=== PATIENT | male | born 1995 | race Caucasian/White ===

== ENCOUNTER 2019-09-12 15:07 | Outpatient (CLI) | payer OTHER, SELFPAY ==
--- NOTE | ~2019-09-12 | US_ITS ---
EXAMINATION: US scrotum doppler DATE: 09/12/2019 16:29 INDICATION: Other specified disorders of the male genital organs. TECHNIQUE: Grayscale and Doppler ultrasound images of the testes were obtained. COMPARISON: None. FINDINGS: The right testis measures 4.5 x 2.9 x 3.0 cm. The left testis measures 4.1 x 2.6 x 2.9 cm. There is normal vascular flow to both testes. The right epididymis is normal with normal vascular noemi w. The left epididymis is normal with normal vascular flow. There is no varicocele or hydrocele. IMPRESSION: 1. Normal testes. Reviewed, dictated and finalized at location A. IMPRESSION: 1. Normal testes.
== END 2019-09-12 15:08 | disposition home or self-care (01) ==
LOC: CHSIMG 15:09
PROVIDERS: PCP Family Medicine; Visit Provider Family Medicine
DX: N50.89 Other specified disorders of the male genital organs (principal)
CPT/HCPCS: 76870; 93976

== ENCOUNTER 2020-02-12 12:33 | Outpatient (CLI) | payer OTHER, SELFPAY ==
--- NOTE | ~2020-02-12 | XR_ITS ---
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 COMPARISON: 10/11/2016 FINDINGS: The lungs are free of acute opacities. There is no pleural effusion or pneumothorax. The ca rdiomediastinal silhouette is normal. The visualized bones and soft tissues are unremarkable. IMPRESSION: 1. No acute cardiopulmonary abnormality. Reviewed, dictated and finalized at location A. R PAINT
== END 2020-02-12 12:34 | disposition home or self-care (01) ==
PROVIDERS: PCP Family Medicine
DX: R76.12 Nonspecific reaction to cell mediated immunity measurement of gamma interferon antigen response without active tuberculosis (principal)
CPT/HCPCS: 71046

== ENCOUNTER 2020-03-29 13:44 | Outpatient (CLI) | payer OTHER, SELFPAY ==
[2020-03-30 19:17] LABS: SARS-CoV-2 RNA PCR Negative
== END 2020-03-29 13:45 | disposition home or self-care (01) ==
PROVIDERS: PCP Family Medicine; Visit Provider Family Medicine
DX: Z20.822 Contact with and (suspected) exposure to COVID-19 (principal)
CPT/HCPCS: C9803; U0003; U0005

== ENCOUNTER 2020-03-30 14:03 | Outpatient (CLI) | payer OTHER, SELFPAY ==
--- NOTE | ~2020-03-30 | XR_ITS ---
EXAMINATION: XR chest 2V DATE: 03/30/2020 14:21 INDICATION: Nonspecific reaction to tuberculin skin test TECHNIQUE: frontal and lateral views of the chest were obtained. COMPARISON: Chest radiograph dated 02/12/2020 FINDINGS: The lungs remain clear with no focal airspace opacities, pulmonary edema, pleural effusion or pneumot horax. The cardiomediastinal silhouette is normal. Visualized bones and soft tissues are unremarkable . IMPRESSION: 1. No acute cardiopulmonary disease. Reviewed, dictated and finalized at location B. TYPESETTER OPERATOR
[2020-03-30 15:22] LABS: HIV 1 P24 AG Negative (Negative); HIV 1/2 AB Negative (Negative)
[2020-04-03 22:58] LABS: Hepatitis A Antibody IgM Nonreactive; Hepatitis B Core Antibody Nonreactive (Nonreactive); Hepatitis B Surface Antigen Nonreactive (Nonreactive); Hepatitis C Signal to Cutoff 0.01 ratio (<1.00); Hepatitis C Virus Antibody Nonreactive (Nonreactive)
[2020-04-05 07:25] LABS: NIL 0.04 IU/mL; TB1-NIL 0.01 IU/mL
[2020-04-05 07:26] LABS: TB2-NIL 0.04 IU/mL
[2020-04-05 07:27] LABS: Quantiferon TB Plus, 1T NEGATIVE
== END 2020-03-30 14:04 | disposition home or self-care (01) ==
PROVIDERS: PCP Family Medicine; Visit Provider Family Medicine
DX: R76.11 Nonspecific reaction to tuberculin skin test without active tuberculosis (principal); R19.7 Diarrhea, unspecified
CPT/HCPCS: 36415; 71046; 80074; 86480; 86703

== ENCOUNTER 2020-04-24 11:52 | Outpatient (NON) | payer OTHER, SELFPAY | END 2020-04-24 11:53 | disposition home or self-care (01) | PROVIDERS: Visit Provider Nurse Practitioner Family | DX: R10.31 Right lower quadrant pain (principal); R10.32 Left lower quadrant pain; R19.7 Diarrhea, unspecified | CPT/HCPCS: 87491; 87591 ==

== ENCOUNTER 2020-04-25 11:42 | Outpatient (CLI) | payer OTHER, SELFPAY | END 2020-04-25 11:43 | disposition home or self-care (01) | LOC: CHSLAB 11:45 | PROVIDERS: PCP Family Medicine; Visit Provider Nurse Practitioner Family | DX: R19.7 Diarrhea, unspecified (principal) | CPT/HCPCS: 87177; 87209; 87269; 87324 ==

== ENCOUNTER 2020-05-14 16:01 | Outpatient (CLI) | payer OTHER, SELFPAY ==
[2020-05-14 16:12] LABS: Basophils Absolute Auto 0.03 K/mm3 (0.00-0.10); Basophils Percent Auto 0.5 % (0.0-1.0); Eosinophils Absolute Auto 0.15 K/mm3 (0.02-0.50); Eosinophils Percent Auto 2.4 % (1.0-6.0); Hematocrit 41.7 % (40.0-54.0); Hemoglobin 14.5 g/dL (14.0-18.0); Immature Granulocyte Absolute 0.01 K/mm3 (0.00-0.00); Immature Granulocyte Percent A 0.2 % (0.0-0.0); Lymphocytes Absolute Auto 2.81 K/mm3 (1.10-4.50); Lymphocytes Percent Auto 44.9 % (18.0-42.0); Mean Corpuscular HGB Conc 34.8 g/dL (32.0-36.0); Mean Corpuscular Hemoglobin 31.3 pg (27.0-31.0); Mean Corpuscular Volume 90.1 fL (78.0-102.0); Mean Platelet Volume 8.8 fl (8.7-11.0); Monocytes Absolute Auto 0.46 K/mm3 (0.10-0.90); Monocytes Percent Auto 7.3 % (2.0-11.0); Neutrophils Absolute Auto 2.8 K/mm3 (1.7-7.2); Neutrophils Percent Auto 44.7 % (50.0-70.0); Platelet Count Result 257 K/mm3 (150-420); Red Blood Count 4.63 M/mm3 (4.70-6.10); Red Cell Distribution Width 12.3 % (11.6-14.4); White Blood Count 6.3 K/mm3 (4.8-10.8)
[2020-05-14 17:06] LABS: Alanine Aminotransferase 22 U/L (16-63); Albumin Level 4.3 g/dL (3.4-5.0); Alkaline Phosphatase 52 U/L (46-116); Anion Gap 10 mmol/L (8-16); Aspartate Amino Transferase 11 U/L (15-37); Bilirubin,Total 0.4 mg/dL (0.00-1.00); Blood Urea Nitrogen 19 mg/dL (7-18); Calcium 9.7 mg/dL (8.5-10.1); Carbon Dioxide 26 mmol/L (21-32); Chloride 103 mmol/L (98-108); Estimated Glomerular Filt Rate > 60; Glucose 95 mg/dL (70-99); Osmolality Calculated 290 mOsm/kg (285-295); Potassium 4.2 mmol/L (3.5-5.1); Sodium 139 mmol/L (136-145); Total Protein 7.3 g/dL (6.4-8.2)
[2020-05-17 04:04] LABS: Hepatitis A Antibody IgM Nonreactive; Hepatitis B Core Antibody Nonreactive (Nonreactive); Hepatitis B Surface Antigen Nonreactive (Nonreactive); Hepatitis C Signal to Cutoff 0.01 ratio (<1.00); Hepatitis C Virus Antibody Nonreactive (Nonreactive)
== END 2020-05-14 16:02 | disposition home or self-care (01) ==
PROVIDERS: PCP Family Medicine
DX: Z79.899 Other long term (current) drug therapy (principal); Z51.81 Encounter for therapeutic drug level monitoring
CPT/HCPCS: 36415; 80053; 80074; 85025

== ENCOUNTER 2020-07-19 11:26 | Outpatient (CLI) | payer OTHER, SELFPAY ==
[2020-07-19 11:37] LABS: Basophils Absolute Auto 0.05 K/mm3 (0.00-0.10); Basophils Percent Auto 0.8 % (0.0-1.0); Eosinophils Absolute Auto 0.19 K/mm3 (0.02-0.50); Eosinophils Percent Auto 2.9 % (1.0-6.0); Hematocrit 40.9 % (40.0-54.0); Hemoglobin 14.1 g/dL (14.0-18.0); Immature Granulocyte Absolute 0.01 K/mm3 (0.00-0.00); Immature Granulocyte Percent A 0.2 % (0.0-0.0); Lymphocytes Percent Auto 41.8 % (18.0-42.0); Mean Corpuscular HGB Conc 34.5 g/dL (32.0-36.0); Mean Corpuscular Hemoglobin 29.8 pg (27.0-31.0); Mean Corpuscular Volume 86.5 fL (78.0-102.0); Mean Platelet Volume 8.9 fl (8.7-11.0); Monocytes Absolute Auto 0.43 K/mm3 (0.10-0.90); Monocytes Percent Auto 6.7 % (2.0-11.0); Neutrophils Absolute Auto 3.1 K/mm3 (1.7-7.2); Neutrophils Percent Auto 47.6 % (50.0-70.0); Platelet Count Result 260 K/mm3 (150-420); Red Blood Count 4.73 M/mm3 (4.70-6.10); Red Cell Distribution Width 11.5 % (11.6-14.4); White Blood Count 6.5 K/mm3 (4.8-10.8)
[2020-07-19 12:25] LABS: Alanine Aminotransferase 19 U/L (16-63); Albumin Level 4.2 g/dL (3.4-5.0); Alkaline Phosphatase 52 U/L (46-116); Anion Gap 8 mmol/L (8-16); Aspartate Amino Transferase 12 U/L (15-37); Bilirubin,Total 0.7 mg/dL (0.00-1.00); Blood Urea Nitrogen 18 mg/dL (7-18); Calcium 9.2 mg/dL (8.5-10.1); Carbon Dioxide 28 mmol/L (21-32); Chloride 104 mmol/L (98-108); Cholesterol 213 mg/dL (0-200); Estimated Glomerular Filt Rate > 60; Glucose 91 mg/dL (70-99); HDL Direct 61 mg/dL (40-60); LDL Cholesterol Calculated 140 mg/dL (<130); Magnesium 2.1 mg/dL (1.8-2.4); Osmolality Calculated 291 mOsm/kg (285-295); Potassium 4.1 mmol/L (3.5-5.1); Sodium 140 mmol/L (136-145); Total Protein 7.1 g/dL (6.4-8.2); Triglycerides 58 mg/dL (0-150); Uric Acid 5.5 mg/dL (3.5-7.2)
== END 2020-07-19 11:27 | disposition home or self-care (01) ==
LOC: CHSLAB 11:29
PROVIDERS: PCP Family Medicine
DX: Z51.81 Encounter for therapeutic drug level monitoring (principal); Z79.899 Other long term (current) drug therapy
CPT/HCPCS: 36415; 80053; 80061; 83735; 84550; 85025

== ENCOUNTER 2020-08-16 17:26 | Outpatient (CLI) | payer OTHER, SELFPAY ==
[2020-08-16 17:42] LABS: Basophils Absolute Auto 0.04 K/mm3 (0.00-0.10); Basophils Percent Auto 0.6 % (0.0-1.0); Eosinophils Absolute Auto 0.12 K/mm3 (0.02-0.50); Eosinophils Percent Auto 1.9 % (1.0-6.0); Hematocrit 40.1 % (40.0-54.0); Hemoglobin 13.5 g/dL (14.0-18.0); Immature Granulocyte Absolute 0.01 K/mm3 (0.00-0.00); Immature Granulocyte Percent A 0.2 % (0.0-0.0); Lymphocytes Absolute Auto 2.64 K/mm3 (1.10-4.50); Lymphocytes Percent Auto 41.8 % (18.0-42.0); Mean Corpuscular HGB Conc 33.7 g/dL (32.0-36.0); Mean Corpuscular Hemoglobin 29.5 pg (27.0-31.0); Mean Corpuscular Volume 87.7 fL (78.0-102.0); Monocytes Absolute Auto 0.41 K/mm3 (0.10-0.90); Monocytes Percent Auto 6.5 % (2.0-11.0); Neutrophils Absolute Auto 3.1 K/mm3 (1.7-7.2); Platelet Count Result 265 K/mm3 (150-420); Red Blood Count 4.57 M/mm3 (4.70-6.10); Red Cell Distribution Width 11.8 % (11.6-14.4); White Blood Count 6.3 K/mm3 (4.8-10.8)
[2020-08-16 18:04] LABS: Alanine Aminotransferase 15 U/L (16-63); Albumin Level 4.1 g/dL (3.4-5.0); Alkaline Phosphatase 50 U/L (46-116); Anion Gap 9 mmol/L (8-16); Aspartate Amino Transferase 13 U/L (15-37); Bilirubin,Total 0.8 mg/dL (0.00-1.00); Blood Urea Nitrogen 16 mg/dL (7-18); Calcium 8.8 mg/dL (8.5-10.1); Carbon Dioxide 28 mmol/L (21-32); Chloride 104 mmol/L (98-108); Cholesterol 206 mg/dL (0-200); Estimated Glomerular Filt Rate > 60; Glucose 93 mg/dL (70-99); HDL Direct 56 mg/dL (40-60); LDL Cholesterol Calculated 126 mg/dL (<130); Osmolality Calculated 293 mOsm/kg (285-295); Potassium 4.2 mmol/L (3.5-5.1); Sodium 141 mmol/L (136-145); Total Protein 6.9 g/dL (6.4-8.2); Triglycerides 122 mg/dL (0-150); Uric Acid 5.4 mg/dL (3.5-7.2)
== END 2020-08-16 17:27 | disposition home or self-care (01) ==
LOC: CHSLAB 17:32
PROVIDERS: PCP Family Medicine
DX: Z51.81 Encounter for therapeutic drug level monitoring (principal); Z79.899 Other long term (current) drug therapy
CPT/HCPCS: 36415; 80053; 80061; 83735; 84550; 85025

== ENCOUNTER 2020-10-03 16:51 | Outpatient (CLI) | payer OTHER, SELFPAY ==
[2020-10-03 17:43] LABS: Basophils Absolute Auto 0.04 K/mm3 (0.00-0.10); Basophils Percent Auto 0.5 % (0.0-1.0); Eosinophils Absolute Auto 0.11 K/mm3 (0.02-0.50); Eosinophils Percent Auto 1.4 % (1.0-6.0); Hematocrit 41.8 % (40.0-54.0); Hemoglobin 14.3 g/dL (14.0-18.0); Immature Granulocyte Absolute 0.02 K/mm3 (0.00-0.00); Immature Granulocyte Percent A 0.3 % (0.0-0.0); Lymphocytes Absolute Auto 3.09 K/mm3 (1.10-4.50); Lymphocytes Percent Auto 38.7 % (18.0-42.0); Mean Corpuscular HGB Conc 34.2 g/dL (32.0-36.0); Mean Corpuscular Hemoglobin 30.6 pg (27.0-31.0); Mean Corpuscular Volume 89.5 fL (78.0-102.0); Mean Platelet Volume 8.9 fl (8.7-11.0); Monocytes Absolute Auto 0.52 K/mm3 (0.10-0.90); Monocytes Percent Auto 6.5 % (2.0-11.0); Neutrophils Absolute Auto 4.2 K/mm3 (1.7-7.2); Neutrophils Percent Auto 52.6 % (50.0-70.0); Platelet Count Result 253 K/mm3 (150-420); Red Blood Count 4.67 M/mm3 (4.70-6.10); Red Cell Distribution Width 13.2 % (11.6-14.4)
[2020-10-03 18:42] LABS: Anion Gap 11 mmol/L (8-16); Carbon Dioxide 27 mmol/L (21-32); Chloride 105 mmol/L (98-108); Potassium 4.1 mmol/L (3.5-5.1); Sodium 143 mmol/L (136-145)
[2020-10-03 19:04] LABS: Alanine Aminotransferase 22 U/L (16-63); Albumin Level 4.5 g/dL (3.4-5.0); Alkaline Phosphatase 51 U/L (46-116); Aspartate Amino Transferase 17 U/L (15-37); Bilirubin,Total 0.4 mg/dL (0.00-1.00); Blood Urea Nitrogen 19 mg/dL (7-18); Estimated Glomerular Filt Rate > 60; Glucose 85 mg/dL (70-99); Magnesium 2.1 mg/dL (1.8-2.4); Osmolality Calculated 297 mOsm/kg (285-295); Total Protein 7.6 g/dL (6.4-8.2)
== END 2020-10-03 16:52 | disposition home or self-care (01) ==
LOC: CHSLAB 16:55
PROVIDERS: PCP Family Medicine
DX: Z79.899 Other long term (current) drug therapy (principal)
CPT/HCPCS: 36415; 80053; 83735; 85025

== ENCOUNTER 2020-10-09 17:12 | Outpatient (CLI) | payer OTHER, SELFPAY ==
[2020-10-09 18:40] LABS: Occult Blood Negative (Negative)
[2020-10-16 00:43] LABS: Lactoferrin, Stool Negative (Negative)
[2020-10-19 21:32] LABS: Calprotectin, Stool 16 mcg/g
[2020-10-23 04:32] LABS: FECFAT Total Specimen Weight 41 g
== END 2020-10-09 17:13 | disposition home or self-care (01) ==
LOC: CHSLAB 17:15
PROVIDERS: PCP Family Medicine; Visit Provider Family Medicine
DX: R19.7 Diarrhea, unspecified (principal)
CPT/HCPCS: 82272; 82710; 83630; 83993; 87045; 87046; 87177; 87209; 87324; 87427

== ENCOUNTER 2020-11-29 15:17 | Outpatient (CLI) | payer OTHER, SELFPAY ==
[2020-11-29 15:31] LABS: Basophils Absolute Auto 0.03 K/mm3 (0.00-0.10); Basophils Percent Auto 0.4 % (0.0-1.0); Eosinophils Absolute Auto 0.13 K/mm3 (0.02-0.50); Eosinophils Percent Auto 1.7 % (1.0-6.0); Hematocrit 40.4 % (40.0-54.0); Hemoglobin 13.7 g/dL (14.0-18.0); Immature Granulocyte Absolute 0.02 K/mm3 (0.00-0.00); Immature Granulocyte Percent A 0.3 % (0.0-0.0); Lymphocytes Absolute Auto 3.18 K/mm3 (1.10-4.50); Lymphocytes Percent Auto 40.7 % (18.0-42.0); Mean Corpuscular HGB Conc 33.9 g/dL (32.0-36.0); Mean Corpuscular Hemoglobin 31.3 pg (27.0-31.0); Mean Corpuscular Volume 92.2 fL (78.0-102.0); Mean Platelet Volume 8.8 fl (8.7-11.0); Monocytes Absolute Auto 0.61 K/mm3 (0.10-0.90); Monocytes Percent Auto 7.8 % (2.0-11.0); Neutrophils Absolute Auto 3.9 K/mm3 (1.7-7.2); Neutrophils Percent Auto 49.1 % (50.0-70.0); Platelet Count Result 252 K/mm3 (150-420); Red Blood Count 4.38 M/mm3 (4.70-6.10); Red Cell Distribution Width 12.8 % (11.6-14.4); White Blood Count 7.8 K/mm3 (4.8-10.8)
[2020-11-29 16:42] LABS: Alanine Aminotransferase 20 U/L (16-63); Albumin Level 4.1 g/dL (3.4-5.0); Alkaline Phosphatase 48 U/L (46-116); Anion Gap 9 mmol/L (8-16); Aspartate Amino Transferase 13 U/L (15-37); Bilirubin,Total 0.4 mg/dL (0.00-1.00); Blood Urea Nitrogen 21 mg/dL (7-18); Calcium 8.7 mg/dL (8.5-10.1); Carbon Dioxide 28 mmol/L (21-32); Chloride 107 mmol/L (98-108); Cholesterol 213 mg/dL (0-200); Estimated Glomerular Filt Rate > 60; Glucose 88 mg/dL (70-99); HDL Direct 53 mg/dL (40-60); LDL Cholesterol Calculated 132 mg/dL (<130); Magnesium 1.6 mg/dL (1.8-2.4); Osmolality Calculated 300 mOsm/kg (285-295); Potassium 4.1 mmol/L (3.5-5.1); Sodium 144 mmol/L (136-145); Total Protein 6.8 g/dL (6.4-8.2); Triglycerides 141 mg/dL (0-150)
== END 2020-11-29 15:18 | disposition home or self-care (01) ==
LOC: CHSLAB 15:20
PROVIDERS: PCP Family Medicine
DX: Z79.899 Other long term (current) drug therapy (principal)
CPT/HCPCS: 36415; 80053; 80061; 83735; 85025

== ENCOUNTER 2020-12-13 17:28 | Outpatient (CLI) | payer OTHER, SELFPAY | END 2020-12-13 17:29 | disposition home or self-care (01) | LOC: CHSLAB 17:30 | PROVIDERS: PCP Family Medicine; Visit Provider Nurse Practitioner Family | DX: Z20.2 Contact with and (suspected) exposure to infections with a predominantly sexual mode of transmission (principal) | CPT/HCPCS: 87491; 87591 ==

== ENCOUNTER 2021-01-09 16:36 | Outpatient (CLI) | payer OTHER, SELFPAY ==
[2021-01-09 16:59] LABS: Basophils Absolute Auto 0.05 K/mm3 (0.00-0.10); Basophils Percent Auto 0.6 % (0.0-1.0); Eosinophils Absolute Auto 0.13 K/mm3 (0.02-0.50); Eosinophils Percent Auto 1.6 % (1.0-6.0); Hematocrit 43.4 % (40.0-54.0); Hemoglobin 14.3 g/dL (14.0-18.0); Immature Granulocyte Absolute 0.02 K/mm3 (0.00-0.00); Immature Granulocyte Percent A 0.2 % (0.0-0.0); Lymphocytes Absolute Auto 2.51 K/mm3 (1.10-4.50); Lymphocytes Percent Auto 30.2 % (18.0-42.0); Mean Corpuscular HGB Conc 32.9 g/dL (32.0-36.0); Mean Corpuscular Hemoglobin 31.1 pg (27.0-31.0); Mean Corpuscular Volume 94.3 fL (78.0-102.0); Monocytes Absolute Auto 0.58 K/mm3 (0.10-0.90); Neutrophils Percent Auto 60.4 % (50.0-70.0); Platelet Count Result 288 K/mm3 (150-420); Red Cell Distribution Width 11.9 % (11.6-14.4); White Blood Count 8.3 K/mm3 (4.8-10.8)
[2021-01-09 17:14] LABS: Alanine Aminotransferase 20 U/L (16-63); Albumin Level 4.3 g/dL (3.4-5.0); Alkaline Phosphatase 52 U/L (46-116); Anion Gap 7 mmol/L (8-16); Aspartate Amino Transferase 13 U/L (15-37); Bilirubin,Total 0.3 mg/dL (0.00-1.00); Blood Urea Nitrogen 17 mg/dL (7-18); Calcium 8.9 mg/dL (8.5-10.1); Carbon Dioxide 28 mmol/L (21-32); Chloride 104 mmol/L (98-108); Estimated Glomerular Filt Rate > 60; Glucose 97 mg/dL (70-99); Osmolality Calculated 289 mOsm/kg (285-295); Sodium 139 mmol/L (136-145); Total Protein 7.4 g/dL (6.4-8.2)
== END 2021-01-09 16:37 | disposition home or self-care (01) ==
LOC: CHSLAB 16:39
PROVIDERS: PCP Family Medicine
DX: Z51.81 Encounter for therapeutic drug level monitoring (principal)
CPT/HCPCS: 36415; 80053; 85025

== ENCOUNTER 2021-01-21 17:33 | Outpatient (CLI) | payer OTHER, SELFPAY ==
[2021-01-21 17:46] LABS: Basophils Absolute Auto 0.03 K/mm3 (0.00-0.10); Basophils Percent Auto 0.4 % (0.0-1.0); Eosinophils Percent Auto 1.4 % (1.0-6.0); Hematocrit 42.7 % (40.0-54.0); Hemoglobin 14.9 g/dL (14.0-18.0); Immature Granulocyte Absolute 0.02 K/mm3 (0.00-0.00); Immature Granulocyte Percent A 0.3 % (0.0-0.0); Lymphocytes Absolute Auto 2.09 K/mm3 (1.10-4.50); Lymphocytes Percent Auto 28.8 % (18.0-42.0); Mean Corpuscular HGB Conc 34.9 g/dL (32.0-36.0); Mean Corpuscular Hemoglobin 32.1 pg (27.0-31.0); Mean Platelet Volume 8.9 fl (8.7-11.0); Monocytes Absolute Auto 0.48 K/mm3 (0.10-0.90); Monocytes Percent Auto 6.6 % (2.0-11.0); Neutrophils Absolute Auto 4.5 K/mm3 (1.7-7.2); Neutrophils Percent Auto 62.5 % (50.0-70.0); Platelet Count Result 287 K/mm3 (150-420); Red Blood Count 4.64 M/mm3 (4.70-6.10); Red Cell Distribution Width 11.8 % (11.6-14.4); White Blood Count 7.3 K/mm3 (4.8-10.8)
[2021-01-21 18:08] LABS: Alanine Aminotransferase 21 U/L (16-63); Albumin Level 4.5 g/dL (3.4-5.0); Alkaline Phosphatase 52 U/L (46-116); Anion Gap 11 mmol/L (8-16); Aspartate Amino Transferase 14 U/L (15-37); Bilirubin,Total 0.5 mg/dL (0.00-1.00); Blood Urea Nitrogen 16 mg/dL (7-18); Calcium 9.3 mg/dL (8.5-10.1); Carbon Dioxide 28 mmol/L (21-32); Chloride 102 mmol/L (98-108); Estimated Glomerular Filt Rate > 60; Glucose 92 mg/dL (70-99); Osmolality Calculated 293 mOsm/kg (285-295); Sodium 141 mmol/L (136-145); Total Protein 7.5 g/dL (6.4-8.2)
== END 2021-01-21 17:34 | disposition home or self-care (01) ==
LOC: CHSLAB 17:36
PROVIDERS: PCP Family Medicine
DX: Z51.81 Encounter for therapeutic drug level monitoring (principal)
CPT/HCPCS: 36415; 80053; 85025

== ENCOUNTER 2021-02-18 15:57 | Outpatient (CLI) | payer OTHER, SELFPAY ==
[2021-02-18 16:46] LABS: HIV 1 P24 AG Negative (Negative); HIV 1/2 AB Negative (Negative)
[2021-02-21 11:14] LABS: RPR Screen Non-Reactive (Non-Reactive)
[2021-02-22 04:44] LABS: Hepatitis B Core Ab Total Nonreactive (Nonreactive)
== END 2021-02-18 15:58 | disposition home or self-care (01) ==
LOC: CHSLAB 15:59
PROVIDERS: PCP Family Medicine; Visit Provider Family Medicine
DX: Z20.2 Contact with and (suspected) exposure to infections with a predominantly sexual mode of transmission (principal)
CPT/HCPCS: 36415; 86592; 86703; 86704; 87491; 87591; 87661

== ENCOUNTER 2021-06-17 17:06 | Outpatient (CLI) | payer OTHER, SELFPAY ==
[2021-06-19 16:46] LABS: NIL 0.69 IU/mL; Quantiferon TB Plus, 1T NEGATIVE (NEGATIVE); TB1-NIL 0.11 IU/mL; TB2-NIL 0.02 IU/mL
== END 2021-06-17 17:07 | disposition home or self-care (01) ==
LOC: CHSLAB 17:08
PROVIDERS: PCP Family Medicine
DX: Z79.899 Other long term (current) drug therapy (principal)
CPT/HCPCS: 36415; 86480

== ENCOUNTER 2021-07-22 12:06 | Outpatient (CLI) | payer OTHER, SELFPAY ==
[2021-07-22 13:06] LABS: HIV 1 P24 AG Negative (Negative); HIV 1/2 AB Negative (Negative)
[2021-07-24 11:59] LABS: RPR Screen Non-Reactive (Non-Reactive)
[2021-07-25 04:34] LABS: Hepatitis A Antibody IgM Nonreactive; Hepatitis B Core Antibody Nonreactive (Nonreactive); Hepatitis B Surface Antigen Nonreactive (Nonreactive); Hepatitis C Signal to Cutoff 0.01 ratio (<1.00); Hepatitis C Virus Antibody Nonreactive (Nonreactive)
== END 2021-07-22 12:07 | disposition home or self-care (01) ==
LOC: CHSLAB 12:10
PROVIDERS: PCP Family Medicine; Visit Provider Family Medicine
DX: Z72.51 High risk heterosexual behavior (principal)
CPT/HCPCS: 36415; 80074; 86592; 86695; 86696; 86703; 87491; 87591; 87661

== ENCOUNTER 2022-02-03 08:46 | Outpatient (CLI) | payer OTHER, SELFPAY ==
[2022-02-03 09:14] LABS: Strep Group A RT-PCR DETECTED (Negative)
== END 2022-02-03 08:47 | disposition home or self-care (01) ==
PROVIDERS: PCP Family Medicine; Visit Provider Family Medicine
DX: J02.9 Acute pharyngitis, unspecified (principal); Z20.818 Contact with and (suspected) exposure to other bacterial communicable diseases
CPT/HCPCS: 87651

== ENCOUNTER 2022-02-11 16:18 | Outpatient (CLI) | payer OTHER, SELFPAY ==
[2022-02-11 16:49] LABS: Strep Group A RT-PCR DETECTED (Negative)
[2022-02-11 17:04] LABS: Influenza A QL RT-PCR Negative (Negative); Influenza B QL RT-PCR Negative (Negative); SARS-CoV-2 RNA PCR Negative (Negative)
== END 2022-02-11 16:19 | disposition home or self-care (01) ==
LOC: CHSLAB 16:19
PROVIDERS: PCP Family Medicine; Visit Provider Family Medicine
DX: J02.9 Acute pharyngitis, unspecified (principal); Z20.822 Contact with and (suspected) exposure to COVID-19
CPT/HCPCS: 87636; 87651

== ENCOUNTER 2022-02-20 10:30 | Outpatient (CLI) | payer OTHER, SELFPAY ==
[2022-02-20 11:02] LABS: Strep Group A RT-PCR DETECTED (Negative)
== END 2022-02-20 10:31 | disposition home or self-care (01) ==
LOC: CHSLAB 10:31
PROVIDERS: PCP Family Medicine; Visit Provider Family Medicine
DX: J02.9 Acute pharyngitis, unspecified (principal)
CPT/HCPCS: 87651

== ENCOUNTER 2022-02-21 16:27 | Emergency (ER) | payer OTHER, SELFPAY ==
[2022-02-21 16:36] VITALS: BP 140/83; PULSE 82; RESP 16; TEMP 36.7; O2SAT 98
--- NOTE | 2022-02-21 16:47 | ED.URI ---
HPI - URI/Sore Throat General Chief Complaint: Upper Respiratory Infection Stated Complaint: strep throat still not feeling well Time Seen by Provider: 02/21/22 16:39 Source: patient and RN notes reviewed Mode of arrival: ambulatory Limitations: no limitations History of Present Illness HPI Narrative: patient states that he has been diagnosed with strep throat 3 times. His most recent diagnosis positive strep was yesterday. He initially had a round of Zithromax, he then had prescription for Ceftin he took 1 pill and broke out in a rash. He was changed to clindamycin for 5 days and he finished that 2 days ago. He still having sore throat. He states that his penicillin allergy was 21 years ago and he thinks he had hives. He was being treated at that time for strep when he was 5 years old. MD elicited complaint: sore throat Onset (ago): week(s) (2) Consistency: constant Severity: moderate Exacerbating factors: swallowing Relieving factors: nothing Treatments prior to arrival: antibiotics Related Data Home Medications Medication Instructions Recorded Confirmed buspirone 30 mg tablet 30 mg PO BID 01/02/19 02/21/22 quetiapine 300 mg tablet (Seroquel) 300 mg PO HS 01/02/19 02/21/22 multivitamin,dz-tpft-ogzcnjgo 1 tablet PO DAILY 01/25/19 02/21/22 (Complete Multivitamin tablet) quetiapine 100 mg tablet (Seroquel) 100 mg PO DAILY 01/25/19 02/21/22 adalimumab 40 mg/0.4 mL See Rx Instructions subcut .COMPLEX 07/22/21 02/21/22 subcutaneous syringe kit (Humira(CF)) Allergies Allergy/AdvReac Type Severity Reaction Status Date / Time cefuroxime [From Ceftin] Allergy Hives Verified 02/21/22 18:35 Review of Systems Review of Systems: All systems reviewed & are unremarkable except as noted in HPI and below PMFSH Past Medical History Medical History (Updated 02/21/22 @ 20:09 by Edson Farmer MD) Androgenic alopecia Bipolar disorder Bleeding skin mole Erectile dysfunction High risk sexual behavior Medical cannabis use due to seizures Microscopic hematuria Psoriatic arthritis Seizure Surgical History Surgical History H/O oral surgery Family History Family History Father Asthma Grandparent Hypertension COPD (chronic obstructive pulmonary disease) Heart disease Social History Social History Alcohol intake: current Alcohol use details: Every other day Substance use: never Gender identity (if verbalized by the patient): Male Exam Const: General: healthy appearing, no acute distress and alert Nutritional Appearance: well nourished Orientation/consciousness: patient oriented x3 Limitations: no limitations HENMT: Head: normal to inspection Ears: external ears normal Face/Nose/Sinus: Normal external nose present Face and sinus: normal facial exam Throat: uvula midline and abnormal tonsil bilateral hypertrophy 2+; no erythema and no exudates Eyes: Conjunctivae: conjunctivae normal Pupils: Equal, round and reactive pupils present EOM: EOMs intact bilaterally Neck: Neck: normal visual inspection and no lymphadenopathy Resp: Effort & Inspection: normal respiratory effort Auscultation: clear to auscultation bilaterally Cardio: Rate: regular rate Rhythm: regular rhythm GI: GI Palp: Yes Soft to palpation and No Tenderness to palpation present (GI) Auscultation: normal bowel sounds Back/Spine/Pelvis: Cervical Spine: cervical ROM normal Thoracic/Lumbar Spine: thoraco-lumbar ROM normal Skin: General skin exam: normal color Rashes: no rashes Neuro: General: patient oriented x3, moves all extremities, no focal motor deficits and CN's II-XI intact bilaterally Speech: normal speech Gait exam (Neuro): Normal gait present Extrem: General: normal to inspection and no clubbing, cyanosis or edema Psych: Mental Status: mental status
--- NOTE | 2022-02-21 17:24 | PHAR ---
TALKED WITH DR MITCHELL. HE IS AWARE OF PENICILLIN ALLERGY. GIVING 1/4 OF THE DOSE & MONITORING PATIENT.
[2022-02-21 17:28] LABS: Monoscreen Negative (Negative); Negative Monotest Control Negative (Negative); Positive Monotest Control Positive (Positive)
[2022-02-21] MEDS: PENICILLIN G BENZATHINE 1,200,000 UNITS/2 ML SYRINGE 300000 UNITS IM (17:28)
[2022-02-21] MEDS: PENICILLIN G BENZATHINE 1,200,000 UNITS/2 ML SYRINGE 900000 UNITS IM (18:27)
[2022-02-21 19:16] VITALS: BP 140/80; PULSE 80; RESP 18; TEMP 36.6; O2SAT 100
[2022-02-21 19:45] VITALS: BP 132/80; PULSE 88; RESP 18; O2SAT 100
[2022-02-21 20:18] VITALS: BP 130/83; PULSE 80; RESP 18; TEMP 36.6; O2SAT 100
== END 2022-02-21 20:19 | disposition home or self-care (01) ==
PROVIDERS: Emergency Provider Emergency Medicine; PCP Family Medicine
DX: J02.0 Streptococcal pharyngitis (principal)
CPT/HCPCS: 36415; 86308; 96372; 99284; J0561

== ENCOUNTER 2022-06-26 13:08 | Outpatient (CLI) | payer OTHER, SELFPAY ==
[2022-06-28 14:48] LABS: NIL 0.23 IU/mL; Quantiferon TB Plus, 1T NEGATIVE (NEGATIVE); TB2-NIL 0.21 IU/mL
== END 2022-06-26 13:09 | disposition home or self-care (01) ==
LOC: CHSLAB 13:13
PROVIDERS: PCP Family Medicine
DX: Z79.899 Other long term (current) drug therapy (principal)
CPT/HCPCS: 36415; 86480

== ENCOUNTER 2022-08-15 11:13 | Outpatient (CLI) | payer OTHER, SELFPAY ==
[2022-08-15 12:02] LABS: Strep Group A RT-PCR NOT DETECTED (Negative)
[2022-08-15 12:08] LABS: Influenza A QL RT-PCR Negative (Negative); Influenza B QL RT-PCR Negative (Negative); SARS-CoV-2 RNA PCR Negative (Negative)
[2022-08-15 12:10] LABS: RSV RNA, RT-PCR Negative (Negative)
== END 2022-08-15 11:14 | disposition home or self-care (01) ==
PROVIDERS: PCP Family Medicine; Visit Provider Family Medicine
DX: J02.9 Acute pharyngitis, unspecified (principal); Z20.822 Contact with and (suspected) exposure to COVID-19
CPT/HCPCS: 87637; 87651

== ENCOUNTER 2022-12-08 18:15 | Outpatient (CLI) | payer OTHER, SELFPAY ==
[2022-12-08 18:34] LABS: Basophils Absolute Auto 0.05 K/mm3 (0.00-0.10); Basophils Percent Auto 0.6 % (0.0-1.0); Eosinophils Absolute Auto 0.33 K/mm3 (0.02-0.50); Eosinophils Percent Auto 4.1 % (1.0-6.0); Hematocrit 43.2 % (40.0-54.0); Hemoglobin 14.6 g/dL (14.0-18.0); Immature Granulocyte Absolute 0.02 K/mm3 (0.00-0.00); Immature Granulocyte Percent A 0.3 % (0.0-0.0); Lymphocytes Percent Auto 42.5 % (18.0-42.0); Mean Corpuscular HGB Conc 33.8 g/dL (32.0-36.0); Mean Corpuscular Hemoglobin 29.7 pg (27.0-31.0); Mean Corpuscular Volume 87.8 fL (78.0-102.0); Mean Platelet Volume 9.1 fl (8.7-11.0); Monocytes Absolute Auto 0.54 K/mm3 (0.10-0.90); Monocytes Percent Auto 6.8 % (2.0-11.0); Neutrophils Absolute Auto 3.7 K/mm3 (1.7-7.2); Neutrophils Percent Auto 45.7 % (50.0-70.0); Platelet Count Result 270 K/mm3 (150-420); Red Blood Count 4.92 M/mm3 (4.70-6.10)
[2022-12-08 20:30] LABS: Alanine Aminotransferase 17 U/L (16-63); Albumin Level 4.1 g/dL (3.4-5.0); Alkaline Phosphatase 55 U/L (46-116); Anion Gap 11 mmol/L (8-16); Aspartate Amino Transferase 11 U/L (15-37); Bilirubin,Total 0.5 mg/dL (0.00-1.00); Blood Urea Nitrogen 21 mg/dL (7-18); Carbon Dioxide 26 mmol/L (21-32); Chloride 105 mmol/L (98-108); Estimated Glomerular Filt Rate > 60; Glucose 122 mg/dL (70-99); Osmolality Calculated 298 mOsm/kg (285-295); Potassium 4.2 mmol/L (3.5-5.1); Sodium 142 mmol/L (136-145)
[2022-12-08 21:07] LABS: HIV 1 P24 AG Negative (Negative); HIV 1/2 AB Negative (Negative)
[2022-12-10 07:44] LABS: Trichomonas Vag PCR NOT DETECTED (NOT DETECTE)
[2022-12-12 19:17] LABS: Hepatitis A Antibody IgM Nonreactive; Hepatitis B Core Antibody Nonreactive (Nonreactive); Hepatitis B Surface Antigen Nonreactive (Nonreactive); Hepatitis C Virus Antibody Nonreactive
== END 2022-12-08 18:16 | disposition home or self-care (01) ==
PROVIDERS: PCP Family Medicine; Visit Provider Family Medicine
DX: Z20.2 Contact with and (suspected) exposure to infections with a predominantly sexual mode of transmission (principal); R74.01 Elevation of levels of liver transaminase levels; Z72.51 High risk heterosexual behavior
CPT/HCPCS: 36415; 80053; 80074; 85025; 87661; 87806

== ENCOUNTER 2023-10-22 23:49 | Emergency (ER) | payer OTHER, SELFPAY ==
--- NOTE | ~2023-10-22 | XR_ITS ---
EXAMINATION: XR hand RT min 3V DATE: 10/23/2023 00:08 INDICATION: Right hand injury and pain. TECHNIQUE: 3 views of right hand were obtained. COMPARISON: Right hand radiograph 08/22/2006 FINDINGS: Bone alignment is normal. No fracture. Joint spaces are normal. IMPRESSION: 1. Normal right hand. Reviewed, dictated and finalized at location A. IMPRESSION: 1. Normal right hand.
[2023-10-22 23:52] VITALS: BP 139/89; PULSE 81; RESP 18; TEMP 36.2; O2SAT 99
--- NOTE | 2023-10-22 23:56 | ED.UPPEXIN ---
HPI - Extremity Injury (Upper) General Chief Complaint: Extremity Injury, Upper Stated Complaint: upper extremity injury Time Seen by Provider: 10/22/23 23:53 Source: patient Mode of arrival: ambulatory Limitations: no limitations History of Present Illness HPI narrative: patient is a 28-year-old male presented with injury to his right hand after he was working in his garage and arrange struck his anterior right hand causing some pain swelling has good range of motion although tender and limited secondary to pain and swelling. complaint: injury to: right Onset (ago): hour(s) Other Extremity Injury: Right: hand ( pain with swelling anterior right hand) Place: home Severity: moderate Severity scale (1-10): 6 Related Data Home Medications Medication Instructions Recorded Confirmed buspirone 30 mg tablet 30 mg PO BID 01/02/19 04/03/23 multivitamin,ud-unvm-wfurniox 1 tablet PO DAILY 01/25/19 04/03/23 (Complete Multivitamin tablet) clonazepam 0.5 mg tablet 0.25 mg PO QHS 04/03/23 04/03/23 etanercept 50 mg/mL (1 mL) 50 mg subcut WEEKLY 04/03/23 04/03/23 subcutaneous syringe (Enbrel) meloxicam 15 mg tablet 15 mg PO DAILY 04/03/23 04/03/23 quetiapine 100 mg tablet (Seroquel) 100 mg PO BID 04/03/23 04/03/23 Allergies Allergy/AdvReac Type Severity Reaction Status Date / Time cefuroxime [From Ceftin] Allergy Hives Verified 04/03/23 14:14 Review of Systems Review of Systems: All systems reviewed & are unremarkable except as noted in HPI and below PMFSH Past Medical History Medical History Androgenic alopecia Bipolar disorder Bipolar I disorder Bleeding skin mole Erectile dysfunction High risk sexual behavior Medical cannabis use due to seizures Microscopic hematuria Psoriatic arthritis Seizure Surgical History Surgical History H/O oral surgery Family History Family History Father Asthma Multiple episodes of hypoglycemia Grandparent Hypertension COPD (chronic obstructive pulmonary disease) Heart disease Grandparent Diabetes mellitus CHF (congestive heart failure) Social History Social History Smoking status: Never smoker Alcohol intake: current Alcohol use details: Every other day Substance use: never Lack of Transportation: No Lack of Food: Never True Current Housing: I Have Housing Concerned About Future Housing: No Difficulty Paying Gas/Electric Bills: No Difficulty Paying for Meds: No Currently Unemployed: No Education: High School Diploma/GED Difficulty w/ Childcare or Family Care: No Living arrangements: with roommate(s) Occupation/Education: occupation Gender identity (if verbalized by the patient): Male Exam Const: General: healthy appearing, no acute distress and alert Nutritional Appearance: well nourished Orientation/consciousness: patient oriented x3 Resp: Effort & Inspection: normal respiratory effort Auscultation: clear to auscultation bilaterally Cardio: Rate: regular rate Rhythm: regular rhythm GI: GI Palp: Yes Soft to palpation Auscultation: normal bowel sounds Skin: General skin exam: normal color Rashes: no rashes Neuro: General: patient oriented x3, moves all extremities and no meningeal signs Extrem: Other: Tender anterior right hand with swelling Course Course Emergency Course: patient received a dose of 6mg PO Motrin ice applied to affected hand x-ray performed with the patient. Vital Signs Vital signs: Vital Signs Temperature 36.2 C L 10/22/23 23:52 Pulse Rate 81 10/22/23 23:52 Respiratory Rate 18 10/22/23 23:52 Blood Pressure 139/89 10/22/23 23:52 Pulse Oximetry 99 10/22/23 23:52 Oxygen Delivery Room Air 10/22/23 23:52 Temperature 36.2 C L 10/22/23 2
[2023-10-23] MEDS: IBUPROFEN 600 MG TABLET PO (00:01)
[2023-10-23 00:19] VITALS: BP 125/82; PULSE 80; RESP 18; TEMP 36.6; O2SAT 97
== END 2023-10-23 00:19 | disposition home or self-care (01) ==
LOC: CHSED 10-23 00:01
PROVIDERS: Emergency Provider Emergency Medicine; PCP Family Medicine
DX: S66.911A Strain of unspecified muscle, fascia and tendon at wrist and hand level, right hand, initial encounter (principal); W22.8XXA Striking against or struck by other objects, initial encounter; Y92.008 Other place in unspecified non-institutional (private) residence as the place of occurrence of the external cause
CPT/HCPCS: 73130; 99283; A9270

== ENCOUNTER 2024-01-08 11:52 | Outpatient (CLI) | payer OTHER, SELFPAY ==
[2024-01-08 12:08] LABS: Basophils Absolute Auto 0.02 K/mm3 (0.00-0.10); Basophils Percent Auto 0.4 % (0.0-1.0); Eosinophils Absolute Auto 0.15 K/mm3 (0.02-0.50); Eosinophils Percent Auto 2.7 % (1.0-6.0); Hematocrit 41.4 % (40.0-54.0); Immature Granulocyte Absolute 0.01 K/mm3 (0.00-0.00); Immature Granulocyte Percent A 0.2 % (0.0-0.0); Lymphocytes Absolute Auto 2.46 K/mm3 (1.10-4.50); Lymphocytes Percent Auto 44.3 % (18.0-42.0); Mean Corpuscular HGB Conc 33.8 g/dL (32-36); Mean Corpuscular Hemoglobin 30.4 pg (27.0-31.0); Mean Platelet Volume 9.1 fl (8.7-11.0); Monocytes Absolute Auto 0.36 K/mm3 (0.10-0.90); Monocytes Percent Auto 6.5 % (2.0-11.0); Neutrophils Absolute Auto 2.55 K/mm3 (1.70-7.20); Neutrophils Percent Auto 45.9 % (50.0-70.0); Platelet Count Result 230 K/mm3 (150-420); Red Cell Distribution Width 11.8 % (11.6-14.4); White Blood Count 5.6 K/mm3 (4.8-10.8)
[2024-01-08 12:41] LABS: Alanine Aminotransferase 27 U/L (16-63); Albumin Level 3.9 g/dL (3.4-5.0); Alkaline Phosphatase 44 U/L (46-116); Anion Gap 10 mmol/L (4-12); Aspartate Amino Transferase 18 U/L (15-37); Bilirubin,Total 0.3 mg/dL (0.00-1.00); Blood Urea Nitrogen 17 mg/dL (7-18); Carbon Dioxide 27 mmol/L (21-32); Chloride 108 mmol/L (98-108); Estimated Glomerular Filt Rate > 60; Glucose 124 mg/dL (70-99); Osmolality Calculated 302 mOsm/kg (285-295); Potassium 4.3 mmol/L (3.5-5.1); Sodium 145 mmol/L (136-145); Total Protein 7.1 g/dL (6.4-8.2)
== END 2024-01-08 11:53 | disposition home or self-care (01) ==
LOC: CHSLAB 11:52
PROVIDERS: PCP Family Medicine; Visit Provider Family Medicine
DX: R56.9 Unspecified convulsions (principal)
CPT/HCPCS: 36415; 80053; 85025

== ENCOUNTER 2024-01-12 10:30 | Outpatient (CLI) | payer OTHER, SELFPAY ==
[2024-01-12 11:14] LABS: Strep Group A RT-PCR NOT DETECTED (Negative)
[2024-01-12 11:19] LABS: SARS-CoV-2 RNA PCR Negative (Negative)
[2024-01-12 11:20] LABS: Influenza A QL RT-PCR Negative (Negative); Influenza B QL RT-PCR Negative (Negative); RSV RNA, RT-PCR Negative (Negative)
== END 2024-01-12 10:31 | disposition home or self-care (01) ==
LOC: CHSLAB 10:33
PROVIDERS: PCP Family Medicine; Visit Provider Family Medicine
DX: J06.9 Acute upper respiratory infection, unspecified (principal); R05.9 Cough, unspecified
CPT/HCPCS: 87637; 87651

== ENCOUNTER 2024-02-22 16:43 | Outpatient (CLI) | payer OTHER, SELFPAY ==
[2024-02-26 11:13] LABS: NIL 0.83 IU/mL; Quantiferon TB Plus, 1T POSITIVE (NEGATIVE); TB2-NIL 2.72 IU/mL
== END 2024-02-22 16:44 | disposition home or self-care (01) ==
PROVIDERS: PCP Family Medicine
DX: L40.4 Guttate psoriasis (principal); M25.50 Pain in unspecified joint; L40.0 Psoriasis vulgaris
CPT/HCPCS: 36415; 86480

== ENCOUNTER 2024-02-26 13:00 | Outpatient (CLI) | payer OTHER, SELFPAY ==
--- NOTE | ~2024-02-26 | XR_ITS ---
EXAMINATION: XR chest 2V DATE: 02/26/2024 13:27 INDICATION: Positive TB skin test. TECHNIQUE: PA and lateral views of the chest were obtained. COMPARISON: Chest radiograph dated 03/30/2020 FINDINGS: The lungs are clear with no focal airspace opacities, pulmonary edema, pleural effusion or pneumothor ax. The cardiomediastinal silhouette is normal. Mild lower thoracic levocurvature. IMPRESSION: 1. No acute cardiopulmonary disease. Reviewed, dictated and finalized at location B. R
== END 2024-02-26 13:01 | disposition home or self-care (01) ==
LOC: CHSIMG 13:01
PROVIDERS: PCP Family Medicine; Visit Provider Family Medicine
DX: R76.12 Nonspecific reaction to cell mediated immunity measurement of gamma interferon antigen response without active tuberculosis (principal)
CPT/HCPCS: 71046; 87070; 87205

== ENCOUNTER 2024-02-27 13:40 | Outpatient (NON) | payer OTHER, SELFPAY ==
--- OUTSIDE RECORDS SUMMARY | 2024-03-05 22:04 | XMS_ITS | Encounter Summary ---
Author Organization [facility] Healthcare Address [address] [place] [address] Care Team Providers Care Bagging Machine Operator Name Role Phone Mine Newman DO Primary Care Pro vider Taiwo Soares DO Primary Care Provider Encounter Details Date Type Department Care Team (Late st Contact Info) Description 04/27/2023 Orders Only [facility] Health Information Management [address] [place] [address] Scanning, Provider Social History Tobacco Use Types Packs/Day Years Used Date Smoking Tobacco: Never Assessed Sex and Gender Information Value Date Recorded Sex Assigned at Not on file Legal Sex Male 7:55 AM GRANT WRITER Gender Identity Not on file Sexual Orientation Not on file documented as of this encounter Plan of Treatment Not on file documented as of this encounter Procedures Procedure Name Priority Date/Time Associated Diagnosis Comments SCAN - OTHER ORDERS 04/27/2023 documented in this encounter Results * SCAN - OTHER ORDERS (04/27/2023) us Provider Scanning Final Result documented in this encounter Visit Diagnoses Not on filedocumented in this encounter Care Teams Bagging Machine Operator Relationship Specialty Start Date End Date Mine Newman DO [address] [place] [address] PCP - General Obstetrics and Gynecology 04/28/2304/03 Taiwo Soares DO [address] [place] [address] PCP - General Family Medicine 04/29/23 documented as of this encounter
--- OUTSIDE RECORDS SUMMARY | 2024-03-05 22:04 | XMS_ITS | Referral Summary ---
Author Organization [facility] Address [address] [place] [id number] Care Team Providers Care Postdoctoral Fellow Name Role Phone Taiwo Soares DO Primary Care Provider Allergies Active Allergy Reactions Criticality Noted Date Comments Penicillins Active Problems Problem Noted Date Diagnosed Date High risk sexual behavior 07/20/2014 Social History Tobacco Use Types Packs/Day Years Used Date Smoking Tobacco: Never Assessed Sex and Gender Information Value Date Recorded Sex Assigned at Not on file Legal Sex Male 7:55 AM MENHADEN VESSEL PILOT Gender Identity Not on file Sexual Orientation Not on file Last Filed Vital Signs Vital Sign Reading Time Taken Comments Blood Pressure 128/68 07/20/2014 9:22 AM CDT Pulse 71 07/20/2014 9:22 AM CDT Temperature - - Respiratory Rate - - Oxygen Saturation - - Inhaled Oxygen Concentration - - Weight 58.2 kg (128 lb 4.9 oz) 07/20/2014 9:22 A M CDT Height 182.4 cm (5' 11.81 ) 07/20/2014 9:22 AM C DT Body Mass Index 17.49 07/20/2014 9:22 AM CDT Plan of Treatment Not on file Insurance [facility] Address: [address] [address] [place] [address] [facility] Address: [address] [address] [place] [address] Care Teams Postdoctoral Fellow Relationship Specialty Start Date End Date Taiwo Soares DO [address] [place] [address] PCP - General Family Medicine 04/29/23
--- OUTSIDE RECORDS SUMMARY | 2024-03-05 22:04 | XMS_ITS | Encounter Summary ---
Author Organization [facility] Healthcare Address [address] [place] [address] Care Team Providers Care Junior Legal Secretary Name Role Phone Taiwo Soares DO Primary Care Provider Reason for Referral * Diagnostic Imaging (Routine) - Pending Review Specialty Diagnoses / Procedures Referred By Ramone bergman Referred To Contact Diagnoses Benign neoplasm of testis, unspecified laterality Procedures US Scrotum Mine Newman DO [address] [place] [address] Phone: tel: fax: [address] [phone] Referral ID Status Reason Start Date Expiration Date V isits Requested Visits Authorized [id number] Pending Review 04/27/2023 05/26/2024 1 1 ICE STATION CASHIER Reason for Visit * Diagnostic Imaging (Routine) - Pending Review Specialty Diagnoses / Procedures Referred By Contac t Referred To Contact Diagnoses Benign neoplasm of testis, unspecified laterality Procedures US Scrotum Mine Newman DO [address] [place] [address] Phone: tel: fax: [address] [phone] Referral ID Status Reason Start Date Expiration Date V isits Requested Visits Authorized [id number] Pending Review 04/27/2023 05/26/2024 1 1 Encounter Details Date Type Department Care Team (Latest Contact Info) Description 04/29/2023 1:50 PM SERVICE STATION CASHIER - 04/29/2023 11:59 PM SERVICE STATION CASHIER Hospital Encounter [facility] [address] [place] [id number] Benign neoplasm of testis, unspecified laterality Discharge Disposition: Discharge to home or self care Social History Tobacco Use Types Packs/Day Years Used Date Smoking Tobacco: Never Assessed Sex and Gender Information Value Date Recorded Sex Assigned at Not on file Legal Sex Male 7:55 AM SERVICE STATION CASHIER Gender Identity Not on file Sexual Orientation Not on file documented as of this encounter Discharge Disposition Disposition Code Departure Means Destination Discharge to home or self care documented in this encounter Plan of Treatment Not on file documented as of this encounter Procedures Procedure Name Priority Date/Time Associated Diagnosis Comments US SCROTUM Schedule Routine, Read Routine (OP Routine) 04/29/2023 2:31 PM SERVICE STATION CASHIER Benign neoplasm of testis, unspecified laterality documented in this encounter Results * US Scrotum (04/29/2023 2:31 PM SERVICE STATION CASHIER) Anatomical Region Laterality Modality Testis N/A Ultrasound 04/29/2023 2:32 PM SERVICE STATION CASHIER Impressions 04/29/2023 4:08 PM SERVICE STATION CASHIER 0.7 cm avascular nodule connected by a thin stalk to the superior pole of the right testis, consistent with torsed appendix testis. Dictated by: Ta Blakely MD, PHD The radiology attending physician has personally reviewed this study, and had reviewed and/or edited this written report and agrees with it. Electronically signed by: Willard Milligan MD Narrative 04/29/2023 4:08 PM SERVICE STATION CASHIER EXAMINATION: SCROTAL SONOGRAM HISTORY: ??27-year-old with palpable pea-sized mobile mass in the right scrotum. COMPARISON: ??None FINDINGS: The testes are normal in size and appearance. The right testis measures 4.6 cm by 2.3 cm by 2.8 cm and the left measures ??4.3 cm by 3.3 cm by 2.5 cm. No focal lesions are seen. The right and left epididymis are normal. ??There is a small avascular nodule measuring 0.6 x 0.7 x 0.6 cm connected by a thin stalk to the superior pole of the right testis, which corresponds to the patient's palpable concern. Procedure Note Tj Milligan MD - 04/29/2023 EXAMINATION: SCROTAL SONOGRAM HISTORY: 27-year-old with palpable pea-sized mobile mass in the right scrotum. COMPARISON: None FINDINGS: The testes are normal in size and appearance. The right testis measures 4.6 cm by 2.3 cm by 2.8 cm and the left measures 4.3 cm by 3.3 cm by 2.5 cm. No focal lesions are seen. The right and left epididymis are normal. There is a small avascular nodule measuring 0.6 x 0.7 x 0.6 cm connected by a thin stalk to the superior pole of the right testis, which corresponds to the patient's palpable concern. IMPRESSION: 0.7 cm avascular nodule connected by a thin stalk to the superior pole of the right testis, consistent with torsed appendix testis. Dictated by: Ta Blakely MD, PHD The radiology attending physician has personally reviewed this study, and had reviewed and/or edited this written report and agrees with it. Electronically signed by: Willard Milligan MD us Mine Newman DO [facility] US PROCEDURES Final Result documented in this encounter Visit Diagnoses Diagnosis Benign neoplasm of testis, unspecified laterality documented in this encounter Care Teams Junior Legal Secretary Relationship Specialty Start Date End Date Taiwo Soares DO [facility] [place] [address] PCP - General Family Medicine 04/29/23 documented as of this encounter
--- OUTSIDE RECORDS SUMMARY | 2024-03-05 22:04 | XMS_ITS | Clinical Summary ---
Author Organization [facility] Address [address] [place] [phone] Care Team Providers Care Regulatory Compliance Director Name Role Phone Conchisovidio Taiwo Baumrish Primary Care Provider Allergies Active Allergy Reactions Criticality Noted Date Comments Penicillins Active Problems Problem Noted Date Diagnosed Date High risk sexual behavior 07/20/2014 Medical History Medical History Date Comments Personal history of other di seases of the respiratory system History of allergic rhinitis - (Added by TW Conv) Other specified anxiety disorders Anxiety and depression - (Added by TW Conv) Personal history of other in fectious and parasitic diseases History of cytomegalovirus i nfection - (Added by TW Conv) Family History Medical History Relation Name Comments COPD Father Family history of chronic obstructive pulmonary disease - (Added by TW Conv) COPD Mother Family history of chronic obstructive pulmonary disease - (Added by TW Conv) Asthma Paternal Grandmother Family history of asthma - (Added by TW Conv) Relation Name Status Comments Father Mother Paternal Grandmother Social History Tobacco Use Types Packs/Day Years Used Date Smoking Tobacco: Never Assessed Sex and Gender Information Value Date Recorded Sex Assigned at Not on file Legal Sex Male 7:55 AM WOOD GLUER Gender Identity Not on file Sexual Orientation Not on file Obstetrics History Last Filed Vital Signs Vital Sign Reading [...] 07/20/2014 9:22 AM CDT Plan of Treatment Health Maintenance Due Date Last Done Comments Depression Screening 1996 Hepatitis C Screening 1995 Regular Well Visit/Exam 18-64 2014 DTaP/Tdap/Td Vaccine (7 - Tdap) 10/13/2016 10/13/2006, 09/27/2001, 12/20/1997, Additional history exists Covid-19 Vaccine ( season) 2023 07/31/2020, 07/03/2020 Influenza Vaccine (#1) 2023 5, 01/23/2014, 03/01/2013, Additional history exists Varicella Vaccines Completed 10/13/2006, 09/19/1998 HPV Vaccines Completed 03/14/2013, 09/30, 08/03/2012 Pneumococcal vaccine <65 Aged Out No longer eligible based on patient's age to complete this topic Insurance [facility] Care Teams Regulatory Compliance Director Relationship Specialty Start Date End Date Taiwo Soares DO [address] [place] [address] PCP - General Family Medicine 04/29/23
--- OUTSIDE RECORDS SUMMARY | 2024-03-05 22:04 | XMS_ITS ---
Author Organization [facility] Address [address] [place] [address] Care Team Providers Care Catalogue And Special Products Manager Name Role Phone Lali Garcia Primary Care Provider [phone] REASON FOR VISIT Update Social History Sex Assigned At : Social History Observation Description Sex Assigned At Male Encounters Encounter Location Date Provider Diagnosis [facility] [address] [place] [address] 02/03/2024 aLli Garcia Plan Of Treatment No Information Progress Notes * Bony COLVINOB:1995 (28 yo M)Acc No.[id number]:02/03/2024 Patient:?Thomas COLVIN :1995???Age:28 Y???Sex:Male Address:[address] [place] [address], [phone] * true * Date:? Generated for Juan robert/Ubaldo/eTransmitting on:?03/05/2024 10:03 PM ASSEMBLER CATERPILLAR SPIDER
--- OUTSIDE RECORDS SUMMARY | 2024-03-05 22:04 | XMS_ITS | Encounter Summary ---
Author Organization [facility] Care Team Providers Care Probation And Parole Officer Name Role Phone Unavailable Primary Care Provider Unavailabl e Encounter Details Date Type Department Care Team (Late st Contact Info) Description 08/24/2006 4:20 PM CDT - 08/24/2006 9:56 PM CDT Hospital Encounter [facility] Social History Tobacco Use Types Packs/Day Years Used Date Smoking Tobacco: Never Assessed Sex and Gender Information Value Date Recorded Sex Assigned at Not on file Legal Sex Male 7:55 AM INVERTED BLOCK OPERATOR Gender Identity Not on file Sexual Orientation Not on file documented as of this encounter Plan of Treatment Not on file documented as of this encounter Visit Diagnoses Not on filedocumented in this encounter
--- OUTSIDE RECORDS SUMMARY | 2024-03-05 22:04 | XMS_ITS ---
Author Organization [facility] Address [address] [place] [address] Care Team Providers Care Vending Enterprises Supervisor Name Role Phone Lali Garcia Primary Care Provider Social History Sex Assigned At : Social History Observation Description Sex Assigned At Male Encounters Encounter Location Date Provider Diagnosis [facility] [address] [place] [address] 01/25/2024 Lali Garcia Plan Of Treatment No Information Progress Notes * Bony COLVINOB:1995 (28 yo M)Acc No.[id number]:01/25/2024 Patient:?Thomas COLVIN :1995???Age:28 Y???Sex:Male Address:[address] [place] [address], [phone] * true * Date:? Generated for Juan robert/Ubaldo/eTransmitting on:?03/05/2024 10:04 PM PERMIT SPECIALIST
--- OUTSIDE RECORDS SUMMARY | 2024-03-05 22:04 | XMS_ITS | Encounter Summary ---
Author Organization [facility] Care Team Providers Care Pocket Setter Name Role Phone Unavailable Primary Care Provider Unavailabl e Encounter Details Date Type Department Care Team (Late st Contact Info) Description 06/27/2014 11:21 AM CDT - 06/27/2014 4:58 PM CDT Hospital Encounter [facility] Brijesh Srivastava MD [address] 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 Gender Identity Not on file Sexual Orientation Not on file documented as of this encounter Plan of Treatment Not on file documented as of this encounter Procedures Procedure Name Priority Date/Time Associated Diagnosis Comments BLOOD HUMAN IMMUNODEFICIENCY VIRUS (HIV) RNA VIRAL LOAD Routine 06/27/2014 3:06 PM CDT DISCHARGE LABORATORY CUMULATIVE REPORT 06/27/2014 documented in this encounter Results * Blood human immunodeficiency virus (HIV) RNA viral load (06/27/2014 3:06 PM CDT) HIV, RNA viral load Undetected Undetected copies/ml HISTORICAL RESULTS Comment: Result in log copies/mL is Undetected The quantification range of this assay is 20 copies/mL to 10,000,000 copies/mL (1.30 log copies/mL to 7.00 log copies/mL). Testing was done by the [employer]AR[employer] AmpliPrep/KARINE TaqMan HIV-1 Test version 2.0 ([employer] Test Performed by: [place] [address] Patient Financial Specialist: Darien Chan II, M.D., Ph.D. Blood specimen (specimen) 06/27/2014 3:06 PM CDT Historical Provider LAB BLOOD ORDERABLES Gayathri l Result HISTORICAL RESULTS * DISCHARGE LABORATORY CUMULATIVE REPORT (06/27/2014) Narrative 06/27/2014 Ordered by an unspecified provider. Historical Provider LAB BLOOD ORDERABLES Gayathri l Result documented in this encounter Visit Diagnoses Diagnosis Cytomegaloviral disease (HCC) Cytomegaloviral disease Other depressive disorder Anxiety state Anxiety state, unspecified documented in this encounter
== END 2024-02-27 13:41 | disposition home or self-care (01) ==
LOC: CHSLAB 13:41
PROVIDERS: Visit Provider Family Medicine
DX: R76.12 Nonspecific reaction to cell mediated immunity measurement of gamma interferon antigen response without active tuberculosis (principal)
CPT/HCPCS: 87070; 87205

== ENCOUNTER 2024-04-30 16:38 | Outpatient (CLI) | payer OTHER, SELFPAY ==
[2024-04-30 16:51] LABS: Basophils Absolute Auto 0.05 K/mm3 (0.00-0.10); Basophils Percent Auto 0.6 % (0.0-1.0); Eosinophils Absolute Auto 0.31 K/mm3 (0.02-0.50); Eosinophils Percent Auto 3.5 % (1.0-6.0); Hematocrit 41.3 % (40.0-54.0); Immature Granulocyte Absolute 0.02 K/mm3 (0.00-0.00); Immature Granulocyte Percent A 0.2 % (0.0-0.0); Lymphocytes Absolute Auto 3.41 K/mm3 (1.10-4.50); Lymphocytes Percent Auto 38.7 % (18.0-42.0); Mean Corpuscular HGB Conc 33.9 g/dL (32-36); Mean Corpuscular Hemoglobin 30.9 pg (27.0-31.0); Mean Corpuscular Volume 91.2 fL (78.0-102.0); Mean Platelet Volume 9.1 fl (8.7-11.0); Monocytes Absolute Auto 0.66 K/mm3 (0.10-0.90); Monocytes Percent Auto 7.5 % (2.0-11.0); Neutrophils Absolute Auto 4.37 K/mm3 (1.70-7.20); Neutrophils Percent Auto 49.5 % (50.0-70.0); Platelet Count Result 294 K/mm3 (150-420); Red Blood Count 4.53 M/mm3 (4.70-6.10); Red Cell Distribution Width 12.5 % (11.6-14.4); White Blood Count 8.8 K/mm3 (4.8-10.8)
[2024-04-30 17:24] LABS: Alanine Aminotransferase 49 U/L (16-63); Alkaline Phosphatase 60 U/L (46-116); Anion Gap 9 mmol/L (4-12); Aspartate Amino Transferase 24 U/L (15-37); Bilirubin,Total 0.5 mg/dL (0.00-1.00); Blood Urea Nitrogen 26 mg/dL (7-18); Calcium 8.5 mg/dL (8.5-10.1); Carbon Dioxide 28 mmol/L (21-32); Chloride 105 mmol/L (98-108); Estimated Glomerular Filt Rate > 60; Glucose 94 mg/dL (70-99); Osmolality Calculated 298 mOsm/kg (285-295); Potassium 4.5 mmol/L (3.5-5.1); Sodium 142 mmol/L (136-145); Total Protein 7.1 g/dL (6.4-8.2)
== END 2024-04-30 16:39 | disposition home or self-care (01) ==
LOC: CHSLAB 16:42
PROVIDERS: PCP Family Medicine
DX: R76.12 Nonspecific reaction to cell mediated immunity measurement of gamma interferon antigen response without active tuberculosis (principal)
CPT/HCPCS: 36415; 80053; 85025

== ENCOUNTER 2024-06-14 18:02 | Outpatient (CLI) | payer OTHER, SELFPAY ==
--- OUTSIDE RECORDS SUMMARY | 2024-06-14 18:08 | XMS_ITS | Referral Summary ---
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
--- OUTSIDE RECORDS SUMMARY | 2024-06-14 18:08 | XMS_ITS ---
Author Organization [facility] Address [address] [place] [address] Care Team Providers Care Cloth Printing Back Tender Name Role Phone Lali Garcia Primary Care Provider REASON FOR VISIT Update Social History Sex Assigned At : Social History Observation Description Sex Assigned At Male Encounters Encounter Location Date Provider Diagnosis [facility] [address] [place] [address] 02/03/2024 Lali Garcia Plan Of Treatment No Information Progress Notes * Bony COLVINOB:1995 (28 yo M)Acc No.[id number]:02/03/2024 Patient: Thomas VEE :1995 A ge:28 Y S ex:Male Address:[address] [place] [address], [phone] * true * Date: Generated for Juan robert/Ubaldo/eTransmitting on: 0 06/14/2024 06:08 PM CDT
--- OUTSIDE RECORDS SUMMARY | 2024-06-14 18:08 | XMS_ITS ---
Author Organization [facility] Address [address] [place] [address] Care Team Providers Care Geophysical Party Chief Name Role Phone Lali Garcia Primary Care Provider [phone] Social History Sex Assigned At : Social History Observation Description Sex Assigned At Male Encounters Encounter Location Date Provider Diagnosis On License Of [facility] [address] [place] [address] 01/25/2024 Lali Garcia Plan Of Treatment No Information Progress Notes * Bony COLVINOB:1995 (28 yo M)Acc No.[id number]:01/25/2024 Patient: Thomas VEE :1995 A ge:28 Y S ex:Male Address:[address] [place] [address], [phone] * true * Date: Generated for Juan robert/Ubaldo/eTransmitting on: 0 06/14/2024 06:07 PM CDT
--- OUTSIDE RECORDS SUMMARY | 2024-06-14 18:08 | XMS_ITS | Patient Health Record ---
Author Organization [facility] Address [address] [place] [address] Care Team Providers Care Automatic Punch Press Operator Name Role Phone Radha Lali Primary Care Provider Allergies Allergen (clinical drug ingredient) Drug/Non Drug Allergy documented on EMR Reaction Allergy Type Onset Date Status Ceftin Unknown Drug Allergy Active Reason For Referral No Information Medications Medication SIG (Take, Route, Frequency, Duration) Notes Start Date End Date Status SEROquel 100 MG 1 tablet Orally twic e a day for 30 days Active Klonopin 1 MG 0.5 tablet Orally Tw ice a day as needed for 30 days Active KlonoPIN 1 MG 0.5 tablet Orally Tw ice a day as needed for 30 days 01/13/2024 Active QUEtiapine Fumarate 100 MG Take 1 tablet by mouth twice daily for 30 Active BuSpar 30 MG 1 tablet Orally twic e a day for 30 days Active Social History Tobacco Use: Social History Observation Description Date Details (start date - stop date) Never Smoker NA - NA Sex Assigned At : Social History Observation Description Sex Assigned At Male Tobacco Control (Standard) Question Answer Notes Tobacco use: Nonsmoker Section Notes: admits marijuana use but stevenson s not smoke it. discussed cessation admits marijuana use but stevenson s not smoke it. discussed cessation admits marijuana use but stevenson s not smoke it. discussed cessation admits marijuana use but stevenson s not smoke it. discussed cessation admits marijuana use but stevenson s not smoke it. discussed cessation admits marijuana use but stevenson s not smoke it. discussed cessation admits marijuana use but stevenson s not smoke it. discussed cessation admits marijuana use but stevenson s not smoke it. discussed cessation admits marijuana use but stevenson s not smoke it. discussed cessation admits marijuana use but stevenson s not smoke it. discussed cessation admits marijuana use but stevenson s not smoke it. discussed cessation admits marijuana use but stevenson s not smoke it. discussed cessation admits marijuana use but stevenson s not smoke it. discussed cessation admits marijuana use but stevenson s not smoke it. discussed cessation admits marijuana use but stevenson s not smoke it. discussed cessation admits marijuana use but stevenson s not smoke it. discussed cessation admits marijuana use but stevenson s not smoke it. discussed cessation admits marijuana use but stevenson s not smoke it. discussed cessation admits marijuana use but stevenson s not smoke it. discussed cessation admits marijuana use but stevenson s not smoke it. discussed cessation admits marijuana use but stevenson s not smoke it. discussed cessation admits marijuana use but stevenson s not smoke it. discussed cessation admits marijuana use but stevenson s not smoke it. discussed cessation admits marijuana use but stevenson s not smoke it. discussed cessation admits marijuana use but stevenson s not smoke it. discussed cessation admits marijuana use but stevenson s not smoke it. discussed cessation admits marijuana use but stevenson s not smoke it. discussed cessation admits marijuana use but stevenson s not smoke it. discussed cessation admits marijuana use but stevenson s not smoke it. discussed cessation admits marijuana use but stevenson s not smoke it. discussed cessation admits marijuana use but stevenson s not smoke it. discussed cessation admits marijuana use but stevenson s not smoke it. discussed cessation admits marijuana use but stevenson s not smoke it. discussed cessation admits marijuana use but stevenson s not smoke it. discussed cessation admits marijuana use but stevenson s not smoke it. discussed cessation admits marijuana use but stevenson s not smoke it. discussed cessation admits marijuana use but stevenson s not smoke it. discussed cessation admits marijuana use but stevenson s not smoke it. discussed cessation admits marijuana use but stevenson s not smoke it. discussed cessation admits marijuana use but stevenson s not smoke it. discussed cessation Problems Problem Type SNOMED Code ICD Code Onset Dates Problem Status W/U Status Risk Notes Problem 46470109 Anxiety (F41.9) Active confirmed Problem 622055315 Bipolar 1 disorder (F31.9) Active confirmed Problem 40937720 Cannabis abuse (F12.10) Active confirmed Vital Signs Heart Rate 90 /min 04/20/2024 Respiratory Rate 16 /min 04/20/2024 Blood pressure diastolic 88 mm Hg 04/20/2024 Oximetry 98 % 04/20/2024 Height 72 in 04/20/2024 Blood pressure systolic 128 mm Hg 04/20/2024 Weight 179.8 lbs 04/20/2024 BMI 24.38 kg/m2 04/20/2024 Encounters Encounter Location Date Provider Diagnosis [address] [place] [address] 06/15/2023 Lali Garcia Bipolar 1 disorder F31.[address] [place] [address] 09/07/2023 Lali Garcia Bipolar 1 disorder F31.9 [place] [place] [address] 01/13/2024 Lali Garcia Bipolar 1 disorder F31.9 [address] [place] [address] 04/20/2024 Lali Garcia Bipolar 1 disorder F31.[address] [address] 01/25/2024 Lali Garcia [address] [address] 02/03/2024 Lali Garcia Assessments Encounter Date Diagnosis (ICD Code) Assessment Notes Treatment Notes Treatment Clinical Notes Section Notes 04/20/2024 Bipolar 1 disorder (ICD-10 - F31.9) 01/13/2024 Bipolar 1 disorder (ICD-10 - F31.9) 09/07/2023 Bipolar 1 disorder (ICD-10 - F31.9) 06/15/2023 Bipolar 1 disorder (ICD-10 - F31.9) 04/20/2024 Other Patient may self-administer their own medications or may self-administer their own oral medications per [place] Protocol. Plan Of Treatment No Information Insurance Providers Payer Name Payer Address Payer Phone Subscriber Number Group Number Insured Name Patient Relationship to Insured Coverage Start Date Coverage End Date R [address] [address] [place] [address] [id number] Thomas Colvin Self - patient is the insured 3 Medical (General) History Surgical History Surgery Date(Month/Year) Hospitalization History Reason Date(Month/Year)
--- OUTSIDE RECORDS SUMMARY | 2024-06-14 18:08 | XMS_ITS ---
Author Organization [facility] Address [address] [place] [address] Care Team Providers Care Geographic Information Systems Engineer Name Role Phone Radha Lali Primary Care Provider Allergies Allergen (clinical drug ingredient) Drug/Non Drug Allergy documented on EMR Reaction Allergy Type Onset Date Status Ceftin Unknown Drug Allergy Active REASON FOR VISIT 3 Month Psych F/U & Med Refill Medications Medication SIG (Take, Route, Frequency, Duration) [...] stevenson s not smoke it. discussed cessation Vital Signs Weight 179.8 lbs 04/20/2024 Height 72 in 04/20/2024 BMI 24.38 kg/m2 04/20/2024 Blood pressure systolic 128 mm Hg 04/20/19 25 Blood pressure diastolic 88 mm Hg 025 Heart Rate 90 /min 04/20/2024 Oximetry 98 % 04/20/2024 Respiratory Rate 16 /min 04/20/2024 Encounters Encounter Location Date Provider Diagnosis [facility] [address] [place] [address] 04/20/2024 Lali Garcia Bipolar 1 disorder F31.9 Assessments Encounter Date Diagnosis (ICD Code) Assessment Notes Treatment Notes Treatment Clinical Notes Section Notes 04/20/2024 Bipolar 1 disorder (ICD-10 - F31.9) 04/20/2024 Other Patient may self-administer their own medications or may self-administer their own oral medications per [place] Protocol. Plan Of Treatment Medication Medication Name Sig Start Date Stop Date Notes SEROquel 100 MG 1 tablet Orally twice a day for 30 days Klonopin 1 MG 0.5 tablet Orally Tw ice a day as needed for 30 days BuSpar 30 MG 1 tablet Orally twice a day for 30 days Next Appt Details Follow Up: 3 Months, Reason: med management Progress Notes * Jerman COLVINSravanOB:1995 (28 yo M)Acc No.[id number]:04/20/2024 Patient: Thomas VEE Provider: Masoud Garcia, MSN, STAFF ANALYST-BC, PMHNP-BC :1995 A ge:28 Y S ex:Male Date:04/20/2024 Address:[address] [place], [place] [id number] Check In:12:53 PM SWITCH COUPLER Subjective: * Chief Complaints: * 3 Month Psych F/U & Med Refill * HPI: I nterim History: Emergency room visit N o. Was hospitalized N o. D epression Screening: PHQ-9 L ittle interest or pleasure in doing things?Several days F eeling down, depressed, or hopeless S everal days T rouble falling or staying asleep, or sleeping too much S everal days F eeling tired or having little energy S everal days P oor appetite or overeating N ot at all F eeling bad about yourself or that you are a failure, or have let yourself or your family down N ot at all T rouble concentrating on things, such as reading the newspaper or watching television N ot at all M oving or speaking so slowly that other people could have noticed; or the opposite, being so fidgety or restless that you have been moving around a lot more than usual N ot at all T houghts that you would be better off or of hurting yourself in some way N ot at all T otal Score 4 I nterpretation M inimal Depression P reventative Health and Wellness follow-up: . C SSRS Interpretation and Follow Up Plan: CSSRS Interpretation and Follow Up Plan C SSRS Screen documented using SF Y es R isk Disposition from SF L ow - No Follow Up Plan Required F ollow Up Plan N o Follow Up Plan required at this time. S creening: [place] Suicide Severity Rating Scale (LF) D o you want to initiate with S creener form 1 . Wish to be : Have you wished you were or wished you could go to sleep and not wake up? N o 2 . Suicidal Thoughts: Have you actually had any thoughts of killing yourself? N o 6 . Suicide Behavior Question: Have you ever done anything,started to do anything, or prepared to end your life? N o I nterpretation: L ow Risk D epression Screening PHQ9: PHQ-2 (2015 Edition) L ittle interest or pleasure in doing things??Not at all F eeling down, depressed, or hopeless? N ot at all T otal Score 0 Thomas presents in office. 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 Denies SI/HI. denies hallucinations. appetite is good. sleep is good. He rarely needs the Klonopin. Overall, things are in a good place still. He is remodeling his house and working on his car often. He states at times he feels a little depressed but nothing that he feels is a problem currently and feels once winter is over and mtz are blooming again, he won't have any of that concern.He will call if there are any concerns that he feels a medication adjustment is needed to address. HIs mood is not hindering him and he is still making positive life choices. * ROS: P sych ROS: Constitutional D enies. E yes D enies. E ars/Nose/Mouth/Throat D enies. R espiratory D enies. A llergic/Immunologic D enies.?Cardiovascular D enies. G I D enies. G U D enies. M usculoskeletal D enies. N eurological D enies. I ntegumentary D enies. E ndocrine D enies.?Hematological/Lymphatic D enies. * PSYCH ROS2: Elevated mood symptoms D enies. m ood swings D enies. T houghts of self harm D enies. D enies H omicidal thoughts. H yperactivity?Denies. I nattention D enies. B ehavior concerns D enies. D isruptive behavior D enies. O bsessive behavior D enies. C ompulsive behavior D enies. D ifficulty concentrating D enies. s leeping more than usual D enies. D enies A nxiety. D enies A uditory/visual hallucinations. D enies D elusions. D enies D epressed mood. D enies D ifficulty sleeping. D enies E ating disorder. D enies?Loss of appetite. D enies M ental or Physical abuse. D enies N ervous breakdown,?denies. D enies P sychiatric condition, d enies. D enies S tressors. D enies S ubstance abuse. D enies S uicidal thoughts. * Medical History: * Surgical History: D enies Past Surgical History * Hospitalization/Major Diagno stic Procedure: D enies Past Hospitalization * Family History: F ather: alive. M other: alive. 1 brother(s) - healthy. . * Social History: P rimary Social History: L iving Arrangement L iving Arrangement: I ndependent Living I s this a supportive environment? Y es Alcohol Use A lcohol Use Frequency: M onthly or less states that he drinks a couple beers and sometimes a shot or two approx. 2x per month Illicit Substance Usage I llicit Substance Usage: N o Employment Status E mployment Status: E mployed [employer] P ast Medication Use: D o you use nicotine other than cigarettes?: no. T obacco Use: T obacco Control (Standard) T obacco use: N onsmoker M iscellaneous: M ethod of learning P referred method of learning: D iscussion a dmits marijuana use but does not smoke it. discussed cessation. * Medications: T akingBuSpar 30 MG Tablet 1 tablet Orally twice a day KlonoPIN 1 MG Tablet 0.5 tablet Orally Twice a day as needed QUEtiapine Fumarate 100 MG Tablet Take 1 tablet by mouth twice daily Medication List reviewed and reconciled with the patientTaking BuSpar 30 MG Tablet 1 tablet Orally twice a day Taking KlonoPIN 1 MG Tablet 0.5 tablet Orally Twice a day as needed Taking QUEtiapine Fumarate 100 MG Tablet Take 1 tablet by mouth twice daily Medication List reviewed and reconciled with the patient * Allergies: C eftinno[Allergies Verified] Objective: * Vitals: I nitials: KB, Wt:179.8, Ht: 72, BMI:24.38, BP:128/88, HR:90, Oxygen sat %:98, RR:16, Pain scale:0. * Examination: G eneral Examination: PSYCH: p ositive mood, speech clear, no auditory or visual hallucinations, thought content without suicidal ideation or delusions, thought process logical, goal directed, cooperative with exam, judgement and insight fair , immediate, recent, and remote memory intact, fund of knowledge fair, denies any current thoughts/plans of suidicial/homicidal ideation.? Assessment: * Assessment: 1. B ipolar 1 disorder - F31.9 (Primary) Plan: * Treatment: 2. O thers Clinical Notes: Patient may self-administer their own medications or may self-administer their own oral medications per [place] Protocol. * Recommended Wellness and Pre vention Guidelines: * S tatus A lert L ast Done N ext Due A ction Taken N ONCOMPLIANT H IV screening - 0 04/20/2024 - * Procedure Codes: * Follow Up: 3 Months (Reason: med management) * * CH COUPLER Sign off status: Completed true * Provider: Masoud Garcia, MSN, STAFF ANALYST-, PMHNP- Date: 0 04/20/2024 Generated for Juan robert/Ubaldo/Bernie on: 0 06/14/2024 06:08 PM CDT History and Physical Notes * HPI (History of Present Illness) Category Sub-Category Detail Notes Category Not es Interim History Was hospitalized No Emergency room visit No Depression Screening PHQ9 PHQ-2 (2014 Edition) Little interest or pleasure in doing things?: Not at all Thomas presents in office. 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 Denies SI/HI. denies hallucinations. appetite is good. sleep is good. He rarely needs the Klonopin. Overall, things are in a good place still. He is remodeling his house and working on his car often. He states at times he feels a little depressed but nothing that he feels is a problem currently and feels once winter is over and mtz are blooming again, he won't have any of that concern.He will call if there are any concerns that he feels a medication adjustment is needed to address. HIs mood is not hindering him and he is still making positive life choices. Feeling down, depressed, or hopeless?: N ot at all Total Score: 0 Depression Screening PHQ-9 Little inte rest or pleasure in doing things: Several days Feeling down, depressed, or hopeless: Se veral days Trouble falling or staying asleep, or sl eeping too much: Several days Feeling tired or having little energy: S everal days Poor appetite or overeating: Not at all Feeling bad about yourself o r that you are a failure, or have let yourself or your family down: Not at all Trouble concentrating on thi ngs, such as reading the newspaper or watching television: Not at all Moving or speaking so slowly that other people could have noticed; or the opposite, being so fidgety or restless that you have been moving around a lot more than usual: Not at all Thoughts that you would be b filemon off or of hurting yourself in some way: Not at all Total Score: 4 Interpretation: Minimal Depression Screening [place] Suicide Sev erity Rating Scale (LF) Do you want to initiate with: Screener form 1. Wish to be : Have you wished you were or wished you could go to sleep and not wake up?: No 2. Suicidal Thoughts: Have you actually had any thoughts of killing yourself?: No 6. Suicide Behavior Question: Have you ever done anything,started to do anything, or prepared to end your life?: No Interpretation:: Low Risk Preventative Health and Wellness follow-up . CSSRS Interpretation and Follow Up Plan CSSRS Interpretation and Follow Up Plan CSSRS Screen documented using SF: Yes Risk Disposition from SF: Low - No Follo w Up Plan Required Follow Up Plan: No Follow Up Plan requir ed at this time. Examination Category Sub-Category Detail Notes Category Not es General Examination PSYCH: positive moo d, speech clear, no auditory or visual hallucinations, thought content without suicidal ideation or delusions, thought process logical, goal directed, cooperative with exam, judgement and insight fair , immediate, recent, and remote memory intact, fund of knowledge fair, denies any current thoughts/plans of suidicial/homicidal ideation
--- OUTSIDE RECORDS SUMMARY | 2024-06-14 18:08 | XMS_ITS | Clinical Summary ---
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
[2024-06-14 18:19] LABS: Basophils Absolute Auto 0.04 K/mm3 (0.00-0.10); Basophils Percent Auto 0.5 % (0.0-1.0); Eosinophils Absolute Auto 0.24 K/mm3 (0.02-0.50); Eosinophils Percent Auto 3.3 % (1.0-6.0); Hematocrit 38.9 % (40.0-54.0); Hemoglobin 13.1 g/dL (14.0-18.0); Immature Granulocyte Absolute 0.01 K/mm3 (0.00-0.00); Immature Granulocyte Percent A 0.1 % (0.0-0.0); Lymphocytes Absolute Auto 2.78 K/mm3 (1.10-4.50); Lymphocytes Percent Auto 37.8 % (18.0-42.0); Mean Corpuscular HGB Conc 33.7 g/dL (32-36); Mean Corpuscular Hemoglobin 30.7 pg (27.0-31.0); Mean Corpuscular Volume 91.1 fL (78.0-102.0); Mean Platelet Volume 9.1 fl (8.7-11.0); Monocytes Absolute Auto 0.45 K/mm3 (0.10-0.90); Monocytes Percent Auto 6.1 % (2.0-11.0); Neutrophils Absolute Auto 3.84 K/mm3 (1.70-7.20); Neutrophils Percent Auto 52.2 % (50.0-70.0); Platelet Count Result 244 K/mm3 (150-420); Red Blood Count 4.27 M/mm3 (4.70-6.10); Red Cell Distribution Width 11.9 % (11.6-14.4); White Blood Count 7.4 K/mm3 (4.8-10.8)
[2024-06-14 18:46] LABS: Alanine Aminotransferase 52 U/L (16-63); Albumin Level 4.2 g/dL (3.4-5.0); Alkaline Phosphatase 56 U/L (46-116); Anion Gap 10 mmol/L (4-12); Aspartate Amino Transferase 20 U/L (15-37); Bilirubin,Total 0.4 mg/dL (0.00-1.00); Blood Urea Nitrogen 22 mg/dL (7-18); Carbon Dioxide 29 mmol/L (21-32); Chloride 104 mmol/L (98-108); Estimated Glomerular Filt Rate > 60; Glucose 89 mg/dL (70-99); Osmolality Calculated 298 mOsm/kg (285-295); Potassium 4.2 mmol/L (3.5-5.1); Sodium 143 mmol/L (136-145); Total Protein 7.4 g/dL (6.4-8.2)
== END 2024-06-14 18:03 | disposition home or self-care (01) ==
LOC: CHSLAB 18:05
PROVIDERS: PCP Family Medicine
DX: Z79.899 Other long term (current) drug therapy (principal)
CPT/HCPCS: 36415; 80053; 85025

== ENCOUNTER 2024-07-11 17:18 | Outpatient (CLI) | payer OTHER, SELFPAY ==
--- OUTSIDE RECORDS SUMMARY | 2024-07-11 17:30 | XMS_ITS | Clinical Summary ---
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
--- OUTSIDE RECORDS SUMMARY | 2024-07-11 17:30 | XMS_ITS | Patient Health Record ---
Author Organization [facility] Address [address] [place] [address] Care Team Providers Care Technical Training Coordinator Name Role Phone Radha Lali Primary Care Provider [phone] Allergies Allergen (clinical drug ingredient) Drug/Non Drug [...] it. discussed cessation admits marijuana use but stveenson s not smoke it. discussed cessation admits [...] Problem Status W/U Status Risk Notes Problem 65421570 Anxiety (F41.9) Active confirmed Problem [id number] Bipolar 1 disorder (F31.9) Active confirmed Problem [id number] Cannabis abuse (F12.10) Active confirmed Vital Signs Heart Rate 90 /min 04/20/2024 Respiratory Rate 16 /min 04/20/2024 Oximetry 98 % 04/20/2024 Blood pressure diastolic 88 mm Hg 04/20/2024 Height 72 in 04/20/2024 Blood pressure systolic 128 mm Hg 04/20/2024 Weight 179.8 lbs 04/20/2024 BMI 24.38 kg/m2 04/20/2024 Encounters Encounter Location Date Provider Diagnosis [address] [place] [address] 09/07/2023 Lali Garcia Bipolar 1 disorder F31.9 [facility] [address] [place] [address] 01/13/2024 Lali Garcia Bipolar 1 disorder F31.9 [facility] [address] [place] [address] 04/20/2024 Lali Garcia Bipolar 1 disorder F31.9 [facility] [address] [place] [address] 01/25/2024 Lali Garcia [facility] [address] [place] [address] 02/03/2024 Lali Garcia Assessments Encounter Date Diagnosis (ICD Code) Assessment Notes Treatment Notes Treatment Clinical Notes Section Notes 09/07/2023 Bipolar 1 disorder (ICD-10 - F31.9) 01/13/2024 Bipolar 1 disorder (ICD-10 - F31.9) 04/20/2024 Bipolar 1 disorder (ICD-10 - F31.9) 04/20/2024 Other Patient may self-administer their own medications or may self-administer their own oral medications per [place] Protocol. Plan Of Treatment No Information Insurance Providers Payer Name Payer Address Payer Phone Subscriber Number Group Number Insured Name Patient Relationship to Insured Coverage Start Date Coverage End Date R [address] [address] [place] [address] [id number] Thomas Colvin Self - patient is the insured Medical (General) History Surgical History Surgery Date(Month/Year) Hospitalization History Reason Date(Month/Year)
--- OUTSIDE RECORDS SUMMARY | 2024-07-11 17:31 | XMS_ITS | Referral Summary ---
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 Address: [address] [address] [place] [address] [facility] Address: [address] [address] [place] [address] Care Teams Doctor Of Podiatry Relationship Specialty Start Date End Date Taiwo Soares DO [address] [place] [address] PCP - General Family Medicine 04/29/23
[2024-07-11 17:38] LABS: Basophils Absolute Auto 0.04 K/mm3 (0.00-0.10); Basophils Percent Auto 0.5 % (0.0-1.0); Eosinophils Absolute Auto 0.61 K/mm3 (0.02-0.50); Eosinophils Percent Auto 7.1 % (1.0-6.0); Hematocrit 39.2 % (40.0-54.0); Immature Granulocyte Absolute 0.03 K/mm3 (0.00-0.00); Immature Granulocyte Percent A 0.4 % (0.0-0.0); Lymphocytes Absolute Auto 2.83 K/mm3 (1.10-4.50); Lymphocytes Percent Auto 33.1 % (18.0-42.0); Mean Corpuscular HGB Conc 33.2 g/dL (32-36); Mean Corpuscular Hemoglobin 30.7 pg (27.0-31.0); Mean Corpuscular Volume 92.5 fL (78.0-102.0); Mean Platelet Volume 9.4 fl (8.7-11.0); Monocytes Absolute Auto 0.44 K/mm3 (0.10-0.90); Monocytes Percent Auto 5.2 % (2.0-11.0); Neutrophils Absolute Auto 4.59 K/mm3 (1.70-7.20); Neutrophils Percent Auto 53.7 % (50.0-70.0); Platelet Count Result 245 K/mm3 (150-420); Red Blood Count 4.24 M/mm3 (4.70-6.10); Red Cell Distribution Width 12.1 % (11.6-14.4); White Blood Count 8.5 K/mm3 (4.8-10.8)
[2024-07-11 18:04] LABS: Alanine Aminotransferase 34 U/L (6-50); Albumin Level 4.4 g/dL (3.5-5.1); Alkaline Phosphatase 39 U/L (38-126); Anion Gap 5 mmol/L (4-12); Aspartate Amino Transferase 33 U/L (17-59); Bilirubin,Total 0.4 mg/dL (0.2-1.3); Blood Urea Nitrogen 24 mg/dL (9-20); Calcium 8.8 mg/dL (8.4-10.2); Carbon Dioxide 27 mmol/L (22-30); Chloride 107 mmol/L (98-107); Estimated Glomerular Filt Rate > 60; Glucose 89 mg/dL (65-110); Osmolality Calculated 291 mOsm/kg (285-295); Potassium 4.5 mmol/L (3.4-5.0); Sodium 139 mmol/L (137-145); Total Protein 6.8 g/dL (6.3-8.2)
== END 2024-07-11 17:19 | disposition home or self-care (01) ==
PROVIDERS: PCP Family Medicine
DX: Z79.899 Other long term (current) drug therapy (principal)
CPT/HCPCS: 36415; 80053; 85025

== ENCOUNTER 2024-09-26 16:55 | Outpatient (CLI) | payer OTHER, SELFPAY ==
--- OUTSIDE RECORDS SUMMARY | 2024-09-26 17:01 | XMS_ITS | Referral Summary ---
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
--- OUTSIDE RECORDS SUMMARY | 2024-09-26 17:01 | XMS_ITS | Clinical Summary ---
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 Gender Identity Not on file Sexual Orientation [...] season) 2023 07/31/2020, 07/03/2020 Influenza Vaccine (#1) 2024 5, 01/23/2014, 03/01/2013, Additional history exists Hepatitis B Screening Completed 05/19/1997 , 1996, 1996 Varicella Vaccines Completed 10/13/2006, 09/19/1998 HPV Vaccines Completed 03/14/2013, 09/30, 08/03/2012 Pneumococcal vaccine <65 Aged Out No longer eligible based on patient's age to complete this topic Insurance [facility] Care Teams Floral Department Specialist Relationship Specialty Start Date End Date Taiwo Soares DO [address] [place] [address] PCP - General Family Medicine 04/29/23
--- OUTSIDE RECORDS SUMMARY | 2024-09-26 17:01 | XMS_ITS | Patient Health Record ---
Author Organization [facility] Address [address] [place] [address] Care Team Providers Care Metal Control Coordinator Name Role Phone Radha Lali Primary Care Provider Allergies Allergen (clinical drug ingredient) Drug/Non Drug Allergy documented on EMR Reaction Allergy Type Onset Date Status Ceftin Unknown Drug Allergy Active Reason For Referral No Information Medications Medication SIG (Take, Route, Fr equency, Duration) Notes Start Date End Date Status BuSpar 30 MG 1 tablet Orally twic e a day; Duration: 30 days Active KlonoPIN 1 MG 0.5 tablet Orally Tw ice a day as needed; Duration: 30 days Active Klonopin 1 MG 0.5 tablet Orally Tw ice a day as needed; Duration: 30 days Active SEROquel 100 MG 1 tablet Orally twic e a day; Duration: 30 days Active Social History Tobacco Use: [...] it. discussed cessation admits marijuana use but setvenson s not smoke it. discussed cessation admits [...] it. discussed cessation admits marijuana use but stevenosn s not smoke it. discussed cessation admits [...] Problem Status W/U Status Risk Notes Problem Anxiety (68238721) Anxiety (F41.9) Active confirmed Problem Bipolar 1 disorder (689611277) Bipolar 1 disorder (F31.9) Active confirmed Problem Cannabis abuse (F12.10) Active confirmed Vital Signs Heart Rate 90 /min 04/20/2024 Respiratory Rate 16 /min 04/20/2024 Oximetry 98 % 04/20/2024 Blood pressure diastolic 88 mm Hg 04/20/2024 Height 72 in 04/20/2024 Blood pressure systolic 128 mm Hg 04/20/2024 Weight 179.8 lbs 04/20/2024 BMI 24.38 kg/m2 04/20/2024 Encounters Encounter Location Date Provider Diagnosis [facility] [address] [place] [address] 01/13/2024 Lali Garcia Bipolar 1 disorder F31.9 [facility] [address] [place] [address] 04/20/2024 Lali Garcia Bipolar 1 disorder F31.[address] [place] [address] 07/19/2024 Lali Garcia Nutritional counseling Z71.3 and Bipolar 1 disorder F31.[address] [address] 01/25/2024 Lali Garcia [facility] [address] [place] [address] 02/03/2024 Lali Garcia [address] [address] 07/19/2024 Lali Garcia Assessments Encounter Date Diagnosis (ICD Code) Assessment Notes Treatment Notes Treatment Clinical Notes Section Notes 07/19/2024 Bipolar 1 disorder (ICD-10 - F31.9) 07/19/2024 Nutritional counseling (ICD-10 - Z71.3) 04/20/2024 Bipolar 1 disorder (ICD-10 - F31.9) 01/13/2024 Bipolar 1 disorder (ICD-10 - F31.9) 04/20/2024 Other Patient may self-administer their own medications or may self-administer their own oral medications per [place] Protocol. 07/19/2024 Other Patient may self-administer their own medications or may self-administer their own oral medications per [place] Protocol. Plan Of Treatment Future Test Test Name Order Date Hemoglobin A1c* 08/02/2024 CBC With Differential/Platelet* 08/03/19 Lipid Panel* 08/02/2024 CMP 14 Comprehensive Metabolic Panel* TSH Rfx on Abnormal to Free T4 5 Insurance Providers Payer Name Payer Address Payer Phone Subscriber Number Group Number Insured Name Patient Relationship to Insured Coverage Start Date Coverage End Date [facility] [address] [address] [place] [address] [id number] Thomas Colvin Self - patient is the insured 3 Medical (General) History Surgical History Surgery Date(Month/Year) Hospitalization History Reason Date(Month/Year)
[2024-09-26 17:10] LABS: Hematocrit 39.0 % (40.0-54.0); Hemoglobin 13.1 g/dL (14.0-18.0); Immature Granulocyte Percent A 0.2 % (0.0-0.0); Lymphocytes Absolute Auto 2.79 K/mm3 (1.10-4.50); Mean Corpuscular HGB Conc 33.6 g/dL (32-36); Mean Corpuscular Hemoglobin 30.3 pg (27.0-31.0); Mean Corpuscular Volume 90.1 fL (78.0-102.0); Nucleated Red Blood Cells Absolute Auto 0.00 K/mm3 (0.00-0.00); Nucleated Red Blood Cells Perc 0.0 % (0-0.0); Platelet Count Result 247 K/mm3 (150-420); Red Blood Count 4.33 M/mm3 (4.70-6.10); White Blood Count 8.4 K/mm3 (4.8-10.8)
[2024-09-26 17:27] LABS: Alanine Aminotransferase 26 U/L (6-50); Albumin Level 4.5 g/dL (3.5-5.1); Alkaline Phosphatase 38 U/L (38-126); Anion Gap 5 mmol/L (4-12); Aspartate Amino Transferase 28 U/L (17-59); Bilirubin,Total 0.4 mg/dL (0.2-1.3); Blood Urea Nitrogen 25 mg/dL (9-20); Calcium 9.0 mg/dL (8.4-10.2); Carbon Dioxide 27 mmol/L (22-30); Chloride 108 mmol/L (98-107); Estimated Glomerular Filt Rate > 60; Glucose 89 mg/dL (65-110); Osmolality Calculated 293 mOsm/kg (285-295); Potassium 4.1 mmol/L (3.4-5.0); Sodium 140 mmol/L (137-145); Total Protein 7.1 g/dL (6.3-8.2)
== END 2024-09-26 16:56 | disposition home or self-care (01) ==
LOC: CHSLAB 16:59
DX: Z79.899 Other long term (current) drug therapy (principal)
CPT/HCPCS: 36415; 80053; 85025

== ENCOUNTER 2024-10-22 11:59 | Outpatient (CLI) | payer OTHER, SELFPAY ==
--- OUTSIDE RECORDS SUMMARY | 2024-10-22 12:05 | XMS_ITS | Patient Health Record ---
Author Organization [facility] Address [address] [place] [address] Care Team Providers Care Investigation Division Captain Name Role Phone RadhaLali Primary Care Provider Allergies Allergen (clinical drug ingredient) Drug/Non Drug Allergy documented on EMR Reaction Allergy Type Onset Date Status Ceftin Unknown Drug Allergy Active Reason For Referral No Information Medications Medication SIG (Take, Route, Fr equency, Duration) Notes Start Date End Date Status Klonopin 1 MG 0.5 tablet Orally Tw ice a day as needed; Duration: 30 days Active SEROquel 100 MG 0.5-1 tablet Orally as directed. a full tablet in am and pm. half a tablet in the afternoon; Duration: 30 days Active KlonoPIN 1 MG 0.5 tablet Orally Tw ice a day as needed; Duration: 30 days Active BuSpar 30 MG 1 tablet Orally [...] it. discussed cessation admits marijuana use but tsevenson s not smoke it. discussed cessation admits [...] it. discussed cessation admits marijuana use but steevnson s not smoke it. discussed cessation admits marijuana use but stevenson s not smoke it. discussed cessation admits marijuana use but stevenson s not smoke it. discussed cessation admits marijuana use but stevenson s not smoke it. discussed cessation Problems Problem Type SNOMED Code ICD Code Onset Dates Problem Status W/U Status Risk Notes Problem Anxiety (58047461) Anxiety (F41.9) Active confirmed Problem Bipolar 1 disorder (821657249) Bipolar 1 disorder (F31.9) Active confirmed Problem Cannabis abuse (73531083) Cannabis abuse (F12.10) Active confirmed Vital Signs Heart Rate 90 /min 04/20/2024 Respiratory Rate 16 /min 04/20/2024 Oximetry 98 % 04/20/2024 Blood pressure diastolic 88 mm Hg 04/20/2024 Height 72 in 04/20/2024 Blood pressure systolic 128 mm Hg 04/20/2024 Weight 179.8 lbs 04/20/2024 BMI 24.38 kg/m2 04/20/2024 Encounters Encounter Location Date Provider Diagnosis [facility] [address] [place] [address] 01/13/2024 Lali Garcia Bipolar 1 disorder F31.9 [facility] [address] [place] [address] 04/20/2024 Lali Garcia Bipolar 1 disorder F31.[address] [place] [address] 07/19/2024 Lali Garcia Nutritional counseling Z71.3 and Bipolar 1 disorder F31.[address] [place] [address] 10/13/2024 Lali Radha Bipolar 1 disorder F31.9 ; Nutritional counseling Z71.3 and Anxiety F41.[address] [address] 01/25/2024 Lali Garcia [address] [address] 02/03/2024 Lali Radha [address] [address] 07/19/2024 Lali Radha [facility] [address] [facility] [place] [address] 10/04/2024 Lali Radha Bipolar 1 disorder F31.9 ; Anxiety F41.9 and Nutritional counseling Z71.3 Assessments Encounter Date Diagnosis (ICD Code) Assessment Notes Treatment Notes Treatment Clinical Notes Section Notes 01/13/2024 Bipolar 1 disorder (ICD-10 - F31.9) 04/20/2024 Bipolar 1 disorder (ICD-10 - F31.9) 07/19/2024 Bipolar 1 disorder (ICD-10 - F31.9) 07/19/2024 Nutritional counseling (ICD-10 - Z71.3) 10/04/2024 Bipolar 1 disorder (ICD-10 - F31.9) 10/13/2024 Bipolar 1 disorder (ICD-10 - F31.9) 10/13/2024 Nutritional counseling (ICD-10 - Z71.3) 10/04/2024 Anxiety (ICD-10 - F41.9) 10/04/2024 Nutritional counseling (ICD-10 - Z71.3) 10/13/2024 Anxiety (ICD-10 - F41.9) 04/20/2024 Other Patient may self-administer their own medications or may self-administer their own oral medications per [place] Protocol. 07/19/2024 Other Patient may self-administer their own medications or may self-administer their own oral medications per [place] Protocol. 10/13/2024 Other Patient may self-administer their own medications or may self-administer their own oral medications per [place] Protocol. Plan Of Treatment Future Test Test Name Order Date Hemoglobin A1c* 10/05/2024 CBC With Differential/Platelet* 10/06/19 25 Lipid Panel* 10/05/2024 CMP 14 Comprehensive Metabolic Panel* TSH Rfx on Abnormal to Free T4 5 Next Appt Details Provider Name:Lali Garcia, 10/27/2024 09:40:00 AM, [address], [place], [address], Provider Name:Lali Garcia, 11/29/2024 09:20:00 AM, [address], [place], [address], Insurance Providers Payer Name Payer Address Payer Phone Subscriber Number Group Number Insured Name Patient Relationship to Insured Coverage Start Date Coverage End Date R [address] [address] [place] [address] [id number] hTomas Colvin Self - patient is the insured 3 Medical (General) History Surgical History Surgery Date(Month/Year) Hospitalization History Reason Date(Month/Year)
[2024-10-22 12:20] LABS: Hematocrit 42.4 % (40.0-54.0); Hemoglobin 14.2 g/dL (14.0-18.0); Immature Granulocyte Percent A 0.1 % (0.0-0.0); Lymphocytes Absolute Auto 2.59 K/mm3 (1.10-4.50); Mean Corpuscular HGB Conc 33.5 g/dL (32-36); Mean Corpuscular Hemoglobin 30.0 pg (27.0-31.0); Mean Corpuscular Volume 89.5 fL (78.0-102.0); Nucleated Red Blood Cells Absolute Auto 0.00 K/mm3 (0.00-0.00); Nucleated Red Blood Cells Perc 0.0 % (0-0.0); Platelet Count Result 247 K/mm3 (150-420); Red Blood Count 4.74 M/mm3 (4.70-6.10); White Blood Count 7.0 K/mm3 (4.8-10.8)
[2024-10-22 12:48] LABS: Hemoglobin A1C 5.1 % (<5.7)
[2024-10-22 12:57] LABS: Alanine Aminotransferase 22 U/L (6-50); Albumin Level 4.8 g/dL (3.5-5.1); Alkaline Phosphatase 38 U/L (38-126); Anion Gap 7 mmol/L (4-12); Aspartate Amino Transferase 27 U/L (17-59); Bilirubin,Total 0.4 mg/dL (0.2-1.3); Blood Urea Nitrogen 22 mg/dL (9-20); Calcium 9.7 mg/dL (8.4-10.2); Carbon Dioxide 27 mmol/L (22-30); Chloride 109 mmol/L (98-107); Cholesterol 185 mg/dL (0-200); Estimated Glomerular Filt Rate > 60; Glucose 123 mg/dL (65-110); HDL Direct 50 mg/dL; Osmolality Calculated 300 mOsm/kg (285-295); Potassium 4.1 mmol/L (3.4-5.0); Sodium 143 mmol/L (137-145); Total Protein 7.3 g/dL (6.3-8.2); Triglycerides 70 mg/dL (<150)
[2024-10-22 13:27] LABS: Thyroid Stimulating Hormone Reflex 1.250 uIU/mL (0.465-4.68)
== END 2024-10-22 12:00 | disposition home or self-care (01) ==
PROVIDERS: PCP Family Medicine
DX: Z22.7 Latent tuberculosis (principal)
CPT/HCPCS: 36415; 80053; 80061; 83036; 84443; 85025

== ENCOUNTER 2024-12-06 13:53 | Outpatient (CLI) | payer OTHER, SELFPAY ==
[2024-12-06 14:27] LABS: Hematocrit 40.0 % (40.0-54.0); Hemoglobin 13.6 g/dL (14.0-18.0); Immature Granulocyte Percent A 0.3 % (0.0-0.0); Lymphocytes Absolute Auto 1.94 K/mm3 (1.10-4.50); Mean Corpuscular HGB Conc 34.0 g/dL (32-36); Mean Corpuscular Hemoglobin 30.2 pg (27.0-31.0); Mean Corpuscular Volume 88.9 fL (78.0-102.0); Nucleated Red Blood Cells Absolute Auto 0.00 K/mm3 (0.00-0.00); Nucleated Red Blood Cells Perc 0.0 % (0-0.0); Platelet Count Result 250 K/mm3 (150-420); Red Blood Count 4.50 M/mm3 (4.70-6.10); White Blood Count 5.8 K/mm3 (4.8-10.8)
[2024-12-06 14:39] LABS: Alanine Aminotransferase 29 U/L (6-50); Albumin Level 4.7 g/dL (3.5-5.1); Alkaline Phosphatase 41 U/L (38-126); Anion Gap 8 mmol/L (4-12); Aspartate Amino Transferase 30 U/L (17-59); Bilirubin,Total 0.6 mg/dL (0.2-1.3); Blood Urea Nitrogen 24 mg/dL (9-20); Calcium 9.6 mg/dL (8.4-10.2); Carbon Dioxide 29 mmol/L (22-30); Chloride 106 mmol/L (98-107); Estimated Glomerular Filt Rate > 60; Glucose 91 mg/dL (65-110); Osmolality Calculated 300 mOsm/kg (285-295); Potassium 4.3 mmol/L (3.4-5.0); Sodium 143 mmol/L (137-145); Total Protein 8.1 g/dL (6.3-8.2)
[2024-12-06 14:54] LABS: HIV 1 P24 AG Negative (Negative); HIV 1/2 AB Negative (Negative)
--- OUTSIDE RECORDS SUMMARY | 2024-12-06 14:55 | XMS_ITS | Clinical Summary ---
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 Gender Identity Not on file Sexual Orientation [...] Additional history exists Covid-19 Vaccine ( season) 2024 07/31/2020, 07/03/2020 Influenza Vaccine (#1) 2024 5, 01/23/2014, 03/01/2013, Additional history exists Hepatitis B Screening Completed 05/19/1997 , 1996, 1996 Varicella Vaccines Completed 10/13/2006, 09/19/1998 HPV Vaccines Completed 03/14/2013, 09/30, 08/03/2012 Pneumococcal vaccine <65 Aged Out No longer eligible based on patient's age to complete this topic Insurance [facility] Address: [address] [address] [facility]O Address: [facility] [address] [place] [address] Care Teams Auger Machine Offbearer Relationship Specialty Start Date End Date Taiwo Soares DO [address] [place] [address] PCP - General Family Medicine 04/29/23
== END 2024-12-06 13:54 | disposition home or self-care (01) ==
LOC: CHSLAB 13:59
PROVIDERS: PCP Family Medicine
DX: F31.9 Bipolar disorder, unspecified (principal); Z72.51 High risk heterosexual behavior; Z22.7 Latent tuberculosis
CPT/HCPCS: 36415; 80053; 80074; 85025; 87491; 87591; 87806

== ENCOUNTER 2025-01-09 16:21 | Outpatient (CLI) | payer OTHER, SELFPAY ==
[2025-01-09 16:37] LABS: Hematocrit 41.4 % (40.0-54.0); Hemoglobin 13.7 g/dL (14.0-18.0); Immature Granulocyte Percent A 0.2 % (0.0-0.0); Lymphocytes Absolute Auto 2.96 K/mm3 (1.10-4.50); Mean Corpuscular HGB Conc 33.1 g/dL (32-36); Mean Corpuscular Hemoglobin 30.2 pg (27.0-31.0); Mean Corpuscular Volume 91.4 fL (78.0-102.0); Nucleated Red Blood Cells Absolute Auto 0.00 K/mm3 (0.00-0.00); Nucleated Red Blood Cells Perc 0.0 % (0-0.0); Platelet Count Result 246 K/mm3 (150-420); Red Blood Count 4.53 M/mm3 (4.70-6.10); White Blood Count 8.4 K/mm3 (4.8-10.8)
[2025-01-09 17:01] LABS: Alanine Aminotransferase 28 U/L (6-50); Albumin Level 4.8 g/dL (3.5-5.1); Alkaline Phosphatase 43 U/L (38-126); Anion Gap 6 mmol/L (4-12); Aspartate Amino Transferase 31 U/L (17-59); Bilirubin,Total 1.3 mg/dL (0.2-1.3); Blood Urea Nitrogen 21 mg/dL (9-20); Calcium 9.4 mg/dL (8.4-10.2); Carbon Dioxide 29 mmol/L (22-30); Chloride 106 mmol/L (98-107); Estimated Glomerular Filt Rate > 60; Glucose 89 mg/dL (65-110); Osmolality Calculated 294 mOsm/kg (285-295); Potassium 4.3 mmol/L (3.4-5.0); Sodium 141 mmol/L (137-145); Total Protein 7.3 g/dL (6.3-8.2)
== END 2025-01-09 16:22 | disposition home or self-care (01) ==
LOC: CHSLAB 16:25
PROVIDERS: PCP Family Medicine
DX: L40.50 Arthropathic psoriasis, unspecified (principal); R53.83 Other fatigue; Z22.7 Latent tuberculosis
CPT/HCPCS: 36415; 80053; 82306; 85025

== ENCOUNTER 2025-01-31 15:55 | Outpatient (CLI) | payer OTHER, SELFPAY ==
--- OUTSIDE RECORDS SUMMARY | 2025-01-31 16:53 | XMS_ITS | Clinical Summary ---
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
== END 2025-01-31 15:56 | disposition home or self-care (01) ==
PROVIDERS: PCP Family Medicine; Visit Provider Family Medicine
DX: L40.0 Psoriasis vulgaris (principal)
CPT/HCPCS: 87491; 87591

== ENCOUNTER 2025-02-21 18:46 | Emergency (ER) | payer OTHER, SELFPAY ==
--- NOTE | ~2025-02-21 | CT_ITS ---
EXAMINATION: CT brain wo con DATE: 02/21/2025 19:42 INDICATION: Confusion. TECHNIQUE: Computed tomography (CT) of the head was performed without intravenous contrast. The mA was adjusted according to patient size. Iterative reconstruction technique was employed. The dose-length product was 681.00 mGy-cm. COMPARISON: None FINDINGS: There is no intracranial hemorrhage, acute infarction, or abnormal intracranial mass lesion. The ventricles are normal in size. The orbits are normal. There is mild mucosal thickening in the paranasal sinuses. The mastoid air cells are normal. IMPRESSION: 1. Normal brain. Reviewed, dictated and finalized at location E. RITY CONTROL ASSESSOR IMPRESSION: 1. Normal brain.
--- NOTE | ~2025-02-21 | XR_ITS ---
EXAMINATION: XR chest 2V 02/21/2025 19:42 INDICATION: Left-sided chest pain PROCEDURE: 2 view chest COMPARISON: Comparison to multiple prior studies sequentially, with oldest reviewed study dated 10/11/2016. FINDINGS: The lungs are clear. The cardiomediastinal silhouette is within normal limits. There are no pleural effusions. There is no pneumothorax suspected. IMPRESSION: 1: NO ACUTE CARDIOPULMONARY DISEASE. Reviewed, dictated and finalized at location O. INSPECTOR
[2025-02-21 18:47] VITALS: BP 146/95; PULSE 109; RESP 18; TEMP 36.7; O2SAT 97
[2025-02-21 19:01] VITALS: O2SAT 97
--- NOTE | 2025-02-21 19:04 | ECG_ITS ---
Test Date: 2025-02-21 19:10:21 Measurements Intervals [place] Rate: 83 P: 66 [place]: 161 QRS: 32 QRSD: 94 T: 50 QT: 337 QTc: 397 Interpretive Statements SINUS RHYTHM NORMAL ECG No previous ECG available for comparison Electronically Signed On 02-21-2025 20:59:35 MERCHANDISE COORDINATOR by Lenny Anne D.O.
--- NOTE | 2025-02-21 19:06 | ED.CHESTPAIN ---
HPI - Chest Pain General Chief Complaint: Chest Pain Stated Complaint: left arm pain, anxiety Time Seen by Provider: 02/21/25 18:47 Source: patient Mode of arrival: ambulatory Limitations: no limitations History of Present Illness HPI narrative: Patient is a 29-year-old male with awakening from a nap this afternoon/evening at 6:02 p.m. with blurry vision and difficulty with holding a cup and garbled speech with unsteady gait with chest pain/heartburn. All this lasted about 20 minutes and resolved. Patient has seizure disorder. Patient has psoriatic arthritis. Patient has history of TB exposure. Patient is on many medications for his age to include antiviral/retroviral regimen for prevention and autoimmune medication for the arthritis. MD complaint: chest pain and chest heaviness Pertinent past history: other (See HPI) Onset (ago): day(s) (1) Timing of current episode: episodic Prior episodes: No Onset: during rest Pain location: left chest and lateral Pain radiation: left arm Severity: mild Pain scale (0-10): 3 Quality: tightness Relieving factors: nothing Exacerbating factors: nothing Context: other (Patient awoke from sleep having multiple neurological changes that lasted about 20 minutes; patient did not soil himself or urinate himself nor bite his tongue for questionable seizure activity possibilities) Associated symptoms: other (See HPI) Treatment prior to arrival: none Risk Factors Coronary artery disease risk factors: none Thoracic aortic dissection risk factors: none Related Data Home Medications ?Medication ?Instructions ?Recorded ?Confirmed ?Last Taken ?Type buspirone 30 mg tablet 30 mg PO BID 01/02/19 12/06/24 Unknown History multivitamin,qx-exsz-bmyjruew 1 tablet PO DAILY 01/25/19 12/06/24 Unknown History (Complete Multivitamin tablet) meloxicam 15 mg tablet 15 mg PO DAILY 04/03/23 12/06/24 Unknown History quetiapine 100 mg tablet (Seroquel) 100 mg PO BID 04/03/23 12/06/24 Unknown History isoniazid 300 mg tablet 300 mg PO DAILY 12/06/24 12/06/24 Unknown History risankizumab-rzaa 150 mg/mL 150 mg subcut MONTHLY 12/06/24 12/06/24 Unknown History subcutaneous pen injector (Skyrizi) Allergies Allergy/AdvReac Type Severity Reaction Status Date / Time cefuroxime (From Ceftin) Allergy Hives Verified 02/21/25 19:05 Review of Systems Review of Systems: All systems reviewed & are unremarkable except as noted in HPI and below Constitutional: Constitutional: Reports no additional constitutional complaints Eyes: Eyes: Reports no additional eye complaints ENT: Reports system reviewed and no additional complaints, except as documented Cardiovascular: Cardiovascular: Reports no additional cardiovascular complaints Respiratory: Respiratory: Reports no additional respiratory complaints Gastrointestinal: Gastrointestinal: Reports no additional gastrointestinal complaints Genitourinary: Genitourinary: Reports no additional male genitourinary complaints Musculoskeletal: Musculoskeletal: Reports no additional musculoskeletal complaints Integumentary/Breasts: Skin/Breast: Reports system reviewed and no additional complaints, except as docu Neurologic: Reports system reviewed and no additional complaints, except as documented Psychiatric: Psychiatric: Reports no additional psychiatric complaints Endocrine: Endocrine: Reports no additional endocrine complaints Hematologic/Lymphatic: Hematologic/Lymphatic: Reports no additional hematologic/lymphatic complaints Allergic/Immunologic: Allergic/Immunologic: Reports no additional allergic/immunologic complaints PMFSH Past Medical History Medical History Bipolar I disorder Psoriatic arthritis High risk sexual behavior Bleeding skin mole Erectile dysfunction 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 Seizure Microscopic hematuria Bipolar disorder Surgical History Surgical History H/O oral surgery Family History Family History Father Asthma Multiple episodes of hypoglycemia Grandparent Hypertension COPD (chronic obstructive pulmonary disease) Heart disease Grandparent Diabetes mellitus CHF (congestive heart failure) Social History Social History Smoking status: Never smoker Alcohol intake: current Alcohol use details: Every other day Substance use: never Lack of Transportation: No Lack of Food: Never True Current Housing: I Have Housing Concerned About Future Housing: No Difficulty Paying Gas/Electric Bills: No Difficulty Paying for Meds: No Currently Unemployed: No Education: High School Diploma/GED Difficulty w/ Childcare or Family Care: No Living arrangements: with roommate(s) Occupation/Education: occupation Gender identity (if verbalized by the patient): Male Exam Const: General: healthy appearing Nutritional Appearance: well nourished Orientation/consciousness: patient oriented x3 Limitations: no limitations HENMT: Head: normal to inspection Ears: external ears normal Face/Nose/Sinus: Normal external nose present Face and sinus: normal facial exam Eyes: Conjunctivae: conjunctivae normal Pupils: Equal, round and reactive pupils present EOM: EOMs intact bilaterally Neck: Neck: normal visual inspection Chest: Chest palpation & inspection: normal inspection of the chest Resp: Effort & Inspection: normal respiratory effort and not labored Auscultation: clear to auscultation bilaterally and no crackles Cardio: Rate: regular rate Rhythm: regular rhythm Heart sounds: no murmurs GI: Inspection: non-distended GI Palp: Yes Soft to palpation and No Tenderness to palpation present (GI) Auscultation: normal bowel sounds : General: Yes bladder normal to palpation Back/Spine/Pelvis: Back: no CVA tenderness Skin: General skin exam: normal color Rashes: no rashes Wounds: no wounds Neuro: General: patient oriented x3, moves all extremities, no meningeal signs, no focal motor deficits and CN's II-XI intact bilaterally Cranial nerves: Yes Nystagmus not present Speech: normal speech Gait exam (Neuro): Normal gait present Other: Fast exam negative, NIH score 0, GCS is 15 Extrem: General: normal to inspection, no clubbing, cyanosis or edema and no pedal edema Psych: Mental Status: mental status grossly normal Affect: normal affect Attitude: cooperative Course Vital Signs Vital signs: Vital Signs Temperature 36.7 C 02/21/25 18:47 Pulse Rate 109 H 02/21/25 18:47 Respiratory Rate 18 02/21/25 18:47 Blood Pressure 146/95 H 02/21/25 18:47 Pulse Oximetry 97 02/21/25 18:47 Oxygen Delivery Room Air 02/21/25 18:47 Temperature 36.7 C 02/21/25 18:47 Pulse Rate 109 H 02/21/25 18:47 Respiratory Rate 18 02/21/25 18:47 Blood Pressure 146/95 H 02/21/25 18:47 Pulse Oximetry 97 02/21/25 19:01 Oxygen Delivery Room Air 02/21/25 19:01 [facility] Narrative Medical decision making narrative: Patient is a 29-year-old male with multiple neurological changes and complaints after waking from a nap. Symptoms are completely resolved at this time. We will do a cardiac neurological workup at this time. He is at baseline. No reoccurrence of symptoms in the emergency room. Differential Diagnosis Differential Diagnosis: TIA, sleep hallucinating Lab Data MDM Lab Attestation statement: I personally reviewed the patient's lab results. 02/21/25 19:43 02/21/25 19:43 Labs: Lab Results 02/21/25 02/21/25 Range/Units 19:43 20:24 WBC 7.2 (4.8-10.8) K/mm3 RBC 4.59 L (4.70-6.10) M/mm3 Hgb 13.9 L (14.0-18.0) g/dL Hct 41.4 (40.0-54.0) % MCV 90.2 (78.0-102.0) fL MCH 30.3 (27.0-31.0) pg MCHC 33.6 (32-36) g/dL RDW 12.0 (11.6-14.4) % Plt Count 239 (150-420) K/mm3 MPV 8.7 (8.7-11.0) fl Immature Gran % (Auto) 0.3 H (0.0-0.0) % Neut % (Auto) 65.2 (50.0-70.0) % Lymph % (Auto) 24.2 (18.0-42.0) % Reeves % (Auto) 6.5 (2.0-11.0) % Eos % (Auto) 3.1 (1.0-6.0) % Baso % (Auto) 0.7 (0.0-1.0) % Lymph # (Auto) 1.74 (1.10-4.50) K/mm3 Reeves # (Auto) 0.47 (0.10-0.90) K/mm3 Eos # (Auto) 0.22 (0.02-0.50) K/mm3 Baso # (Auto) 0.05 (0.00-0.10) K/mm3 Abs Immat Gran (auto) 0.02 H (0.00-0.00) K/mm3 Absolute Neuts (auto) 4.69 (1.70-7.20) K/mm3 Absolute Nucleated RBC 0.00 (0.00-0.00) K/mm3 Nucleated RBC % 0.0 (0-0.0) % ESR 7 (0-15) mm/hr PT 9.8 (9.50-12.1) Seconds INR 0.9 APTT 27.6 (23.9-30.70) Sec D-Dimer 0.21 (0.19-0.50) mg/L Sodium 141 (137-145) mmol/L Potassium 3.9 (3.4-5.0) mmol/L Chloride 107 (98-107) mmol/L Carbon Dioxide 25 (22-30) mmol/L Anion Gap 9 (4-12) mmol/L BUN 16 (9-20) mg/dL Creatinine 0.82 (0.7-1.3) mg/dL Estim Creat Clear Calc 125 ml/min Estimated GFR > 60 (59 - ) Glucose 101 (65-110) mg/dL Calculated Osmolality 293 (285-295) mOsm/kg Calcium 9.0 (8.4-10.2) mg/dL Total Bilirubin 0.4 (0.2-1.3) mg/dL AST 35 (17-59) U/L ALT 39 (6-50) U/L Alkaline Phosphatase 52 (38-126) U/L Troponin I < 0.012 (0.000-0.034) ng/mL NT-Pro-B Natriuret Pep < 20 (19.9-100) pg/mL Total Protein 7.4 (6.3-8.2) g/dL Albumin 4.7 (3.5-5.1) g/dL TSH 1.350 (0.465-4.680) uIU/mL Urine Color Light yellow (Yellow) Urine Appearance Clear (Clear) Urine pH 7.0 (5.0-8.0) Ur Specific [place] <= 1.005 L (1.010-1.020) Urine Protein Negative (Negative) Urine Glucose (UA) Negative (Negative) Urine Ketones Negative (Negative) Ur Blood (Man) Trace-intact H (Negative) Urine Nitrate Negative (Negative) Urine Bilirubin Negative (Negative) Urine Urobilinogen 0.2 (0.2-1.0) mg/dL Leukocyte Esterase Rfl Negative (Negative) IRAM/UL Urine Opiates Screen Negative (Negative) Urine Methadone Screen Negative (Negative) Ur Barbiturates Screen Negative (Negative) Ur Phencyclidine Scrn Negative (Negative) Ur Amphetamine Screen Negative (Negative) U Benzodiazepines Scrn Negative (Negative) Urine Cocaine Screen Negative (Negative) U Cannabinoids Screen Negative (Negative) Imaging Data Attestation: I personally reviewed and interpreted this imaging study as follows: Radiologist's impression: ITS Impressions Head CT 02/21/25 19:47 IMPRESSION: 1. Normal brain. Chest X-Ray 02/21/25 19:54 IMPRESSION: 1: NO ACUTE CARDIOPULMONARY DISEASE. ECG Data EKG #1: Attestation: I personally reviewed and interpreted this ECG as follows: ECG completion date: 02/21/25 ECG completion time: 21:17 normal rate, sinus rhythm, no ectopy, no ST changes, normal QRS, normal QT, NL axis and no acute changes Discharge Plan Discharge Clinical Impression: Neurological complaint, TIA (transient ischemic attack) Patient Disposition: Home Condition: Stable Instructions: Transient Ischemic Attack (ED) Additional Instructions: Please follow-up with primary doctor in the next week. I suggested outpatient MRI of the brain to see if a stroke situation did occur this week. You have no deficits at this time. Come back to the ER with any recurrent symptoms. We will call this TIA at this time as it has resolved. I suggest taking aspirin 81 mg daily until MRI has been completed. Patient Language: Italian Prescriptions: No Action buspirone 30 mg Tablet 30 mg PO BID quetiapine [Seroquel] 100 mg tablet 100 mg PO BID fluticasone propionate 50 mcg/actuation spray,suspension See Rx Instructions .ROUTE .COMPLEX Qty: 16 2RF Dose Instruction: Use 1 spray(s) in each nostril twice daily Rx Instructions: Use 1 spray(s) in each nostril twice daily Complete Multivitamin Tablet 1 tablet PO DAILY meloxicam 15 mg tablet 15 mg PO DAILY Skyrizi 150 mg/mL pen injector 150 mg subcut MONTHLY isoniazid 300 mg tablet 300 mg PO DAILY finasteride 1 mg tablet See Rx Instructions .ROUTE .COMPLEX Qty: 90 3RF Dose Instruction: TAKE ONE TABLET BY MOUTH DAILY Rx Instructions: TAKE ONE TABLET BY MOUTH DAILY emtricitabine-tenofovir (TDF) 200-300 mg tablet See Rx Instructions .ROUTE .COMPLEX Qty: 90 3RF Dose Instruction: Take 1 tablet by mouth once daily Rx Instructions: Take 1 tablet by mouth once daily sildenafil 50 mg tablet See Rx Instructions .ROUTE .COMPLEX Qty: 90 0RF Dose Instruction: TAKE 1 TABLET BY MOUTH ONCE DAILY NEEDED FOR SEXUAL ACTIVITY Rx Instructions: TAKE 1 TABLET BY MOUTH ONCE DAILY NEEDED FOR SEXUAL ACTIVITY Follow-up/Referrals: Taiwo Soares DO [Primary Care Provider, [facility]] Time of Disposition: 21:51
--- OUTSIDE RECORDS SUMMARY | 2025-02-21 19:22 | XMS_ITS | Clinical Summary ---
Author Organization [email or web address] Address [address] [place] [address] Care Team Providers Care Carpenter Supervisor Wooden Ship Name Role Phone No, Pcp SHINGLE CUTTER Primary Care Provider Unavailabl e Medications No known medications Social History Tobacco Use Types Packs/Day Years Used Date Smoking Tobacco: Never Assessed Sex and Gender Information Value Date Recorded Sex Assigned at Not on file Legal Sex Male 3:45 AM EST Gender Identity Not on file Sexual Orientation Not on file Plan of Treatment Not on file Medical Devices Not on file Care Teams Carpenter Supervisor Wooden Ship Relationship Specialty Start Date End Date No, Pcp, SHINGLE CUTTER N/A Do not use PCP - General Family Medicine 02/01/20
--- OUTSIDE RECORDS SUMMARY | 2025-02-21 19:22 | XMS_ITS | Patient Health Record ---
Author Organization [facility] Address [address] [place] [address] Phone [phone] Care Team Providers Care Stacker Name Role Phone Lali French Primary Care Provider [phone] Allergies Allergen (clinical drug ingredient) Drug/Non Drug Allergy documented on EMR Reaction Allergy Type Onset Date Status Ceftin Unknown Drug Allergy Active Reason For Referral No Information Medications Medication SIG (Take, Route, Frequency, Duration) Notes Start Date End Date Diagnosis (ICD Code) Status Klonopin 1 MG Tablet 0.5 tablet Orally Twice a day as needed; Duration: 30 days Bipolar 1 disorder (ICD_10 - F31.9) Active SEROquel 100 MG Tablet 0.5-1 tablet Orally as directed. a full tablet in am and pm. half a tablet in the afternoon; Duration: 30 days Bipolar 1 disorder (ICD_10 - F31.9) Active BuSpar 30 MG Tablet 1 tablet Orally twice a day; Duration: 30 days Bipolar 1 disorder (ICD_10 - F31.9) Active KlonoPIN 1 MG Tablet 0.5 tablet Orally Twice a day as needed; Duration: 30 days Bipolar 1 disorder (ICD_10 - F31.9) Active Social History Tobacco Use: Social History Observation Description Date Details (start date - stop date) Never Smoker NA - NA Sex Observation Social History Observation Description Sex Observation Male Sexual Orientation Social History Observation Description Sexual Orientation Lesbian, antonio or homo sexual Gender Identity Social History Observation Description Gender Identity Male Social History Miscellaneous Social Info Question Answer Notes Method of learning: Preferred method of learning: Disc ussion Primary Social History Social Info Question Answer Notes Living Arrangement Living Arrangement: Independent Rosalinda ing Is this a supportive environment? Yes Employment Status Employment Status: Employed [employer] Illicit Substance Usage Illicit Substanc e Usage: No Alcohol Use Alcohol Use Frequency: Monthly or less st ates that he drinks a couple beers and sometimes a shot or two approx. 2x per month Tobacco Use: Social Info Question Answer Notes Tobacco Control (Standard) Tobacco use: Nonsmoker Additional Details Category Social Info Options Details Past Medication Use Do you use nicotine other than cigarettes? no Problems Problem Type SNOMED Code ICD Code Dates Problem Status W/U Status Risk Notes Problem Anxiety (46350359) Anxiety (F41.9) Added On: Active confirmed Problem Bipolar 1 disorder (644297270) Bipolar 1 disorder (F31.9) Added On: Active confirmed Problem Cannabis abuse (49601461) Cannabis abuse (F12.10) Added On: Active confirmed Vital Signs Vital Sign Value Notes Appt Date Heart Rate 90 /min 04/20/2024 Respiratory Rate 16 /min 04/20/2024 Blood pressure diastolic 88 mm Hg Oximetry 98 % 04/20/2024 Height 72 in 04/20/2024 Blood pressure systolic 128 mm Hg 04/02 Weight 179.8 lbs 04/20/2024 BMI 24.38 kg/m2 04/20/2024 Encounters Date Time Type Facility Location Provider Diagnosis 01:00 PM Telehealth Office Visit, Est Pt., Level 3 ([id number]) [place] [place] [place] [address] Lali Garcia Bipolar 1 disorder F31.9 5 10:40 AM [facility], [place] ([id number]) [address] [place] [address] Lali Garcia Nutritional counseling Z71.3 and Bipolar 1 disorder F31.9 5 09:20 AM Telehealth Office Visit, Est Pt., Level 3 ([id number]) [address] [address] Lali Garcia Bipolar 1 disorder F31.9 ; Nutritional counseling Z71.3 and Anxiety F41.9 5 09:40 AM Telehealth Office Visit, Est Pt., Level 3 ([id number]) [address] [address] Lali Garcia Bipolar 1 disorder F31.9 ; Nutritional counseling Z71.3 and Anxiety F41.9 5 09:20 AM Telehealth Office Visit, Est Pt., Level 3 ([id number]) [address] [address] Lali Garcia Bipolar 1 disorder F31.9 ; Nutritional counseling Z71.3 and Anxiety F41.9 5 11:43 AM Telephone Encounter [address] [address] Lali Garcia 5 02:47 PM Telephone Encounter [facility] [address] [place] [address] aLli Garcia Bipolar 1 disorder F31.9 ; Anxiety F41.9 and Nutritional counseling Z71.3 Assessments Encounter Date Diagnosis (ICD Code) Assessment Notes Treat ment Notes Section Notes 04/20/2024 Bipolar 1 disorder (ICD-10 - F31.9) 07/19/2024 Bipolar 1 disorder (ICD-10 - F31.9) 10/04/2024 Bipolar 1 disorder (ICD-10 - F31.9) 10/13/2024 Bipolar 1 disorder (ICD-10 - F31.9) 10/27/2024 Bipolar 1 disorder (ICD-10 - F31.9) 11/29/2024 Bipolar 1 disorder (ICD-10 - F31.9) 07/19/2024 Nutritional counseli ng (ICD-10 - Z71.3) 10/13/2024 Nutritional counseli ng (ICD-10 - Z71.3) 10/27/2024 Nutritional counseli ng (ICD-10 - Z71.3) 11/29/2024 Nutritional counseli ng (ICD-10 - Z71.3) 10/04/2024 Anxiety (ICD-10 - F41.9) 10/13/2024 Anxiety (ICD-10 - F41.9) 10/27/2024 Anxiety (ICD-10 - F41.9) 11/29/2024 Anxiety (ICD-10 - F41.9) 10/04/2024 Nutritional counseli ng (ICD-10 - Z71.3) 04/20/2024 Other 07/19/2024 Other 10/13/2024 Other 10/27/2024 Other 11/29/2024 Other Plan Of Treatment No Information Insurance Providers Payer Name Payer Address Payer Phone Subscriber Number Group Number Insured Name Patient Relationship to Insured Coverage Start Date Coverage End Date [facility] [address] [address] [place] [address] [id number] Thomas Colvin Self - patient is the insured 3 Medical (General) History Surgical History Surgery Date(Month/Year) Hospitalization History Reason Date(Month/Year)
[2025-02-21 19:50] LABS: Hematocrit 41.4 % (40.0-54.0); Hemoglobin 13.9 g/dL (14.0-18.0); Immature Granulocyte Percent A 0.3 % (0.0-0.0); Lymphocytes Absolute Auto 1.74 K/mm3 (1.10-4.50); Mean Corpuscular HGB Conc 33.6 g/dL (32-36); Mean Corpuscular Hemoglobin 30.3 pg (27.0-31.0); Mean Corpuscular Volume 90.2 fL (78.0-102.0); Nucleated Red Blood Cells Absolute Auto 0.00 K/mm3 (0.00-0.00); Nucleated Red Blood Cells Perc 0.0 % (0-0.0); Platelet Count Result 239 K/mm3 (150-420); Red Blood Count 4.59 M/mm3 (4.70-6.10); White Blood Count 7.2 K/mm3 (4.8-10.8)
[2025-02-21 20:03] LABS: Alanine Aminotransferase 39 U/L (6-50); Albumin Level 4.7 g/dL (3.5-5.1); Alkaline Phosphatase 52 U/L (38-126); Anion Gap 9 mmol/L (4-12); Aspartate Amino Transferase 35 U/L (17-59); Bilirubin,Total 0.4 mg/dL (0.2-1.3); Blood Urea Nitrogen 16 mg/dL (9-20); Calcium 9.0 mg/dL (8.4-10.2); Carbon Dioxide 25 mmol/L (22-30); Chloride 107 mmol/L (98-107); Estimated CRCL calculation 125 ml/min; Estimated Glomerular Filt Rate > 60; Glucose 101 mg/dL (65-110); Osmolality Calculated 293 mOsm/kg (285-295); Potassium 3.9 mmol/L (3.4-5.0); Sodium 141 mmol/L (137-145); Total Protein 7.4 g/dL (6.3-8.2)
[2025-02-21 20:06] LABS: INR 0.9; Partial Thromboplastin Time 27.6 Sec (23.9-30.70); Prothrombin Time 9.8 Seconds (9.50-12.1)
[2025-02-21 20:13] LABS: NT Pro B Type Natriuretic Pept < 20 pg/mL (19.9-100)
[2025-02-21 20:16] LABS: Troponin I < 0.012 ng/mL (0.000-0.034)
[2025-02-21 20:34] LABS: Thyroid Stimulating Hormone 1.350 uIU/mL (0.465-4.680)
[2025-02-21 20:36] LABS: Add Urine Microscopic? NO; Appearance Urine Clear (Clear); Glucose Urine UA Negative (Negative); Leukocyte Esterase Ur Negative LEU/UL (Negative); Nitrate Urine Negative (Negative); Specific Grav Ur <= 1.005 (1.010-1.020)
[2025-02-21 20:54] LABS: Cannabinoid Screen Urine Negative (Negative)
[2025-02-21 22:02] VITALS: BP 128/64; PULSE 78; RESP 18; TEMP 36.7; O2SAT 99
== END 2025-02-21 22:02 | disposition home or self-care (01) ==
PROVIDERS: Emergency Provider Emergency Medicine; PCP Family Medicine
DX: G45.9 Transient cerebral ischemic attack, unspecified (principal); G40.909 Epilepsy, unspecified, not intractable, without status epilepticus; R47.89 Other speech disturbances; R26.81 Unsteadiness on feet
CPT/HCPCS: 36415; 70450; 71046; 80053; 80307; 81003; 83880; 84443; 84484; 85025; 85380; 85610; 85652; 85730; 93005; 99284

== ENCOUNTER 2025-02-25 16:27 | Emergency (ER) | payer OTHER, SELFPAY ==
--- OUTSIDE RECORDS SUMMARY | 2025-02-25 16:29 | XMS_ITS | Clinical Summary ---
Author Organization [facility] Address [address] [place] [address] Care Team Providers Care Derrick Boat Captain Name Role Phone No, Pcp BRICK PAVER Primary Care Provider Unavailabl e Medications No [...] Medical Devices Not on file Care Teams Derrick Boat Captain Relationship Specialty Start Date End Date No, Pcp, BRICK PAVER N/A Do not use PCP - General Family Medicine 02/01/20
--- OUTSIDE RECORDS SUMMARY | 2025-02-25 16:29 | XMS_ITS | Patient Health Record ---
Author Organization [facility] Address [address] [place] [address] Phone [phone] Care Team Providers Care E Commerce Solution Architect Name Role Phone Lali French Primary Care Provider [phone] Allergies Allergen (clinical drug ingredient) Drug/Non Drug [...] Status W/U Status Risk Notes Problem Anxiety (41114415) Anxiety (F41.9) Added On: Active confirmed Problem Bipolar 1 disorder (915445668) Bipolar 1 disorder (F31.9) Added On: Active confirmed Problem Cannabis abuse (73469806) Cannabis abuse (F12.10) Added On: Active confirmed [...] Telehealth Office Visit, Est Pt., Level 3 ([id number]) [address] [place] [address] Lali Garcia Bipolar 1 disorder F31.9 5 10:40 AM MEDICAL N[facility]ITION, [place] ([id number]) [address] [place] [address] Lali Garcia Nutritional counseling Z71.3 and Bipolar 1 disorder F31.9 5 09:20 AM Telehealth Office Visit, Est Pt., Level 3 ([id number]) [address] [address] Lali Garcia Bipolar 1 disorder F31.9 ; Nutritional counseling Z71.3 and Anxiety F41.9 5 09:40 AM Telehealth Office Visit, Est Pt., Level 3 ([id number]) [address] [address] Lali Garcia Bipolar 1 disorder F31.9 ; Nutritional counseling Z71.3 and Anxiety F41.9 5 09:20 AM Telehealth Office Visit, Est Pt., Level 3 ([id number]) [address] [address] Lali Garcia Bipolar 1 disorder F31.9 ; Nutritional counseling Z71.3 and Anxiety F41.9 5 11:43 AM Telephone Encounter [address] [address] Lali Garcia 5 02:47 PM Telephone Encounter [facility] [address] [place] [address] Lali Garcia Bipolar 1 disorder F31.9 ; Anxiety F41.9 and Nutritional counseling Z71.3 Assessments Encounter Date Diagnosis (ICD Code) Assessment Notes Treat ment Notes Section Notes 11/29/2024 Bipolar 1 disorder (ICD-10 - F31.9) 10/04/2024 Bipolar 1 disorder (ICD-10 - F31.9) 10/13/2024 Bipolar 1 disorder (ICD-10 - F31.9) 10/27/2024 Bipolar 1 disorder (ICD-10 - F31.9) 04/20/2024 Bipolar 1 disorder (ICD-10 - F31.9) 07/19/2024 Bipolar 1 disorder (ICD-10 - F31.9) 07/19/2024 Nutritional counseli ng (ICD-10 - Z71.3) 10/13/2024 Nutritional counseli ng (ICD-10 - Z71.3) 10/27/2024 Nutritional counseli ng (ICD-10 - Z71.3) 11/29/2024 Nutritional counseli ng (ICD-10 - Z71.3) 10/04/2024 Anxiety (ICD-10 - F41.9) 11/29/2024 Anxiety (ICD-10 - F41.9) 10/13/2024 Anxiety (ICD-10 - F41.9) 10/27/2024 Anxiety (ICD-10 - F41.9) 10/04/2024 Nutritional counseli ng (ICD-10 - Z71.3) 04/20/2024 Other 07/19/2024 Other 10/13/2024 Other 10/27/2024 Other 11/29/2024 Other Plan Of Treatment No Information Insurance Providers Payer Name Payer Address Payer Phone Subscriber Number Group Number Insured Name Patient Relationship to Insured Coverage Start Date Coverage End Date [facility] [address] [address] [place] [address] [id number] Thomas Colvin Self - patient is the insured 3 Medical (General) History Surgical History Surgery Date(Month/Year) Hospitalization History Reason Date(Month/Year)
[2025-02-25 16:30] VITALS: BP 141/90; PULSE 82; RESP 20; TEMP 36.7; O2SAT 98
[2025-02-25 16:54] LABS: Add Urine Microscopic? NO; Appearance Urine Clear (Clear); Glucose Urine UA Negative (Negative); Leukocyte Esterase Ur Negative LEU/UL (Negative); Nitrate Urine Negative (Negative); Specific Grav Ur 1.020 (1.010-1.020)
--- NOTE | 2025-02-25 17:15 | ED.MALEGU ---
HPI - Male Genitourinary General Chief complaint: Urogenital-Male Stated complaint: STD Check Time Seen by Provider: 02/25/25 16:35 Source: patient Mode of arrival: ambulatory Limitations: no limitations History of Present Illness HPI Narrative: This is a 29-year-old male with no significant past medical history who presents to the emergency department requesting treatment for chlamydia. The patient states he was informed by sexual partner that they tested positive for chlamydia. He is not sure if they tested positive for anything else. He denies abdominal pain, dysuria or abnormal penile discharge. He has no other complaints at this time. Related Data Home Medications ?Medication ?Instructions ?Recorded ?Confirmed ?Last Taken ?Type buspirone 30 mg tablet 30 mg PO BID 01/02/19 12/06/24 Unknown History multivitamin,ge-sasr-wruqqrzy 1 tablet PO DAILY 01/25/19 12/06/24 Unknown History (Complete Multivitamin tablet) meloxicam 15 mg tablet 15 mg PO DAILY 04/03/23 12/06/24 Unknown History quetiapine 100 mg tablet (Seroquel) 100 mg PO BID 04/03/23 12/06/24 Unknown History isoniazid 300 mg tablet 300 mg PO DAILY 12/06/24 12/06/24 Unknown History risankizumab-rzaa 150 mg/mL 150 mg subcut MONTHLY 12/06/24 12/06/24 Unknown History subcutaneous pen injector (Skyrizi) Allergies Allergy/AdvReac Type Severity Reaction Status Date / Time cefuroxime (From Ceftin) Allergy Hives Verified 02/25/25 16:44 Review of Systems Review of Systems: All systems reviewed & are unremarkable except as noted in HPI and below PMFSH Past Medical History Medical History Bipolar I disorder Psoriatic arthritis High risk sexual behavior Bleeding skin mole Erectile dysfunction 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 Seizure Microscopic hematuria Bipolar disorder Surgical History Surgical History H/O oral surgery Family History Family History Father Asthma Multiple episodes of hypoglycemia Grandparent Hypertension COPD (chronic obstructive pulmonary disease) Heart disease Grandparent Diabetes mellitus CHF (congestive heart failure) Social History Social History Smoking status: Never smoker Alcohol intake: current Alcohol use details: Every other day Substance use: never Lack of Transportation: No Lack of Food: Never True Current Housing: I Have Housing Concerned About Future Housing: No Difficulty Paying Gas/Electric Bills: No Difficulty Paying for Meds: No Currently Unemployed: No Education: High School Diploma/GED Difficulty w/ Childcare or Family Care: No Living arrangements: with roommate(s) Occupation/Education: occupation Gender identity (if verbalized by the patient): Male Exam Narrative: GENERAL: Well-developed, well-nourished, and in no acute distress. HEAD: Normocephalic, atraumatic. EYES: PERRLA and EOMI. CHEST: Clear to auscultation. No respiratory distress. No wheezes rales or rhonchi HEART: Regular rate and rhythm. No murmur heard. Normal peripheral pulses. ABDOMEN: Soft, nontender, nondistended, normal active bowel sounds. : Patient deferred NEURO: Alert and oriented x3. No focal deficit. Moving all 4 limbs spontaneously PSYCH: Normal mood and affect. Course Course Emergency Course: 17:17 - The patient's urinalysis shows trace blood but is otherwise unremarkable. I discussed treatment options with the patient including discharge with doxycycline, IM Rocephin and Flagyl. The patient prefers to begin doxycycline and wait for the results of gonorrhea and Trichomonas testing. Will discharge with recommendation for primary care follow-up. I discussed the findings and recommendations with the patient. Discussed return and emergency precautions including signs/symptoms of acute abdomen and intractable vomiting. The patient voiced understanding and agreement with the plan. All questions answered to his satisfaction. Vital Signs Vital signs: Vital Signs Temperature 98.1 F 02/25/25 16:30 Pulse Rate 82 02/25/25 16:30 Respiratory Rate 20 02/25/25 16:30 Blood Pressure 141/90 H 02/25/25 16:30 Pulse Oximetry 98 02/25/25 16:30 Oxygen Delivery Room Air 02/25/25 16:30 Temperature 98.1 F 02/25/25 16:30 Pulse Rate 82 02/25/25 16:30 Respiratory Rate 20 02/25/25 16:30 Blood Pressure 141/90 H 02/25/25 16:30 Pulse Oximetry 98 02/25/25 16:30 Oxygen Delivery Room Air 02/25/25 16:30 MDM MDM Narrative Medical decision making narrative: Plan: Labs, antibiotics, primary care follow-up. Differential Diagnosis Differential Diagnosis: Chlamydia, gonorrhea, Trichomonas, other Lab Data Labs: Lab Results 02/25/25 Range/Units 16:50 Urine Color Light yellow (Yellow) Urine Appearance Clear (Clear) Urine pH 7.0 (5.0-8.0) Ur Specific Gile 1.020 (1.010-1.020) Urine Protein Negative (Negative) Urine Glucose (UA) Negative (Negative) Urine Ketones Negative (Negative) Ur Blood (Man) Trace-intact H (Negative) Urine Nitrate Negative (Negative) Urine Bilirubin Negative (Negative) Urine Urobilinogen 1.0 (0.2-1.0) mg/dL Leukocyte Esterase Rfl Negative (Negative) IRAM/UL C. trachomatis (PCR) Pending N. gonorrhoeae (PCR) Pending T. vaginalis (PCR) Pending Discharge Plan Discharge Clinical Impression: Exposure to chlamydia Patient Disposition: Home Condition: Stable Instructions: Antibiotic Form, Safe Sex Practices (ED) Additional Instructions: You were seen in the emergency department. I recommend a course of oral doxycycline. Your labs are pending. I recommend following up with a primary care doctor. If you develop severe abdominal pain, abdominal pain with fevers, persistent vomiting, or if you have other emergent concerns for life, limb, or eyesight, return to the emergency department. Patient Language: Setswana Prescriptions: New doxycycline hyclate 100 mg tablet 100 mg PO BID 7 Days Qty: 14 0RF No Action buspirone 30 mg Tablet 30 mg PO BID quetiapine [Seroquel] 100 mg tablet 100 mg PO BID fluticasone propionate 50 mcg/actuation spray,suspension See Rx Instructions .ROUTE .COMPLEX Qty: 16 2RF Dose Instruction: Use 1 spray(s) in each nostril twice daily Rx Instructions: Use 1 spray(s) in each nostril twice daily Complete Multivitamin Tablet 1 tablet PO DAILY meloxicam 15 mg tablet 15 mg PO DAILY Skyrizi 150 mg/mL pen injector 150 mg subcut MONTHLY isoniazid 300 mg tablet 300 mg PO DAILY finasteride 1 mg tablet See Rx Instructions .ROUTE .COMPLEX Qty: 90 3RF Dose Instruction: TAKE ONE TABLET BY MOUTH DAILY Rx Instructions: TAKE ONE TABLET BY MOUTH DAILY emtricitabine-tenofovir (TDF) 200-300 mg tablet See Rx Instructions .ROUTE .COMPLEX Qty: 90 3RF Dose Instruction: Take 1 tablet by mouth once daily Rx Instructions: Take 1 tablet by mouth once daily sildenafil 50 mg tablet See Rx Instructions .ROUTE .COMPLEX Qty: 90 0RF Dose Instruction: TAKE 1 TABLET BY MOUTH ONCE DAILY NEEDED FOR SEXUAL ACTIVITY Rx Instructions: TAKE 1 TABLET BY MOUTH ONCE DAILY NEEDED FOR SEXUAL ACTIVITY Follow-up/Referrals: Taiwo Soares DO [Primary Care Provider, Family Practice] - 2 Weeks Time of Disposition: 17:17
[2025-02-26 06:10] LABS: Trichomonas Vag PCR NOT DETECTED (NOT DETECTE)
== END 2025-02-25 17:23 | disposition home or self-care (01) ==
PROVIDERS: Emergency Provider Preventive Medicine Aerospace Medicine; PCP Family Medicine
DX: Z20.2 Contact with and (suspected) exposure to infections with a predominantly sexual mode of transmission (principal); Z11.3 Encounter for screening for infections with a predominantly sexual mode of transmission
CPT/HCPCS: 81003; 87491; 87591; 87661; 99283